=== PATIENT | male | born 1970 | race Hispanic/Latino ===

== ENCOUNTER → 2018-06-19 | Outpatient (CLI) | payer BC ==
[~2018-06-19] MED LIST: LEVO500T2 PO; METF-444 PO; TRAM50TA2 PO
[2018-06-19 14:07] VITALS: BP 166/101
== END | disposition home or self-care (01) ==
LOC: WHH 08:45
PROVIDERS: ATTEND Podiatrist Foot & Ankle Surgery
DX: T87.89 Other complications of amputation stump (principal); E11.621 Type 2 diabetes mellitus with foot ulcer; L97.511 Non-pressure chronic ulcer of other part of right foot limited to breakdown of skin; E11.42 Type 2 diabetes mellitus with diabetic polyneuropathy; E11.52 Type 2 diabetes mellitus with diabetic peripheral angiopathy with gangrene; I96 Gangrene, not elsewhere classified; E11.69 Type 2 diabetes mellitus with other specified complication; M86.8X7 Other osteomyelitis, ankle and foot; Y83.5 Amputation of limb(s) as the cause of abnormal reaction of the patient, or of later complication, without mention of misadventure at the time of the procedure
CPT/HCPCS: 11042; 87070; 99205; A6209; L3260

== ENCOUNTER → 2018-07-03 | Outpatient (CLI) | payer BC ==
[2018-07-03 12:50] VITALS: BP 138/88
== END | disposition home or self-care (01) ==
LOC: WHH 09:00
PROVIDERS: ATTEND Podiatrist Foot & Ankle Surgery
DX: T87.89 Other complications of amputation stump (principal); E11.621 Type 2 diabetes mellitus with foot ulcer; L97.511 Non-pressure chronic ulcer of other part of right foot limited to breakdown of skin; E11.51 Type 2 diabetes mellitus with diabetic peripheral angiopathy without gangrene; E11.42 Type 2 diabetes mellitus with diabetic polyneuropathy; E11.52 Type 2 diabetes mellitus with diabetic peripheral angiopathy with gangrene; I96 Gangrene, not elsewhere classified; E11.69 Type 2 diabetes mellitus with other specified complication; M86.8X7 Other osteomyelitis, ankle and foot; Y83.5 Amputation of limb(s) as the cause of abnormal reaction of the patient, or of later complication, without mention of misadventure at the time of the procedure
CPT/HCPCS: 11042; 97605

== ENCOUNTER → 2018-07-15 | Outpatient (CLI) | payer BC | END | disposition home or self-care (01) | LOC: SHCH 14:49 | PROVIDERS: ATTEND Internal Medicine Cardiovascular Disease | DX: I73.9 Peripheral vascular disease, unspecified (principal); E11.9 Type 2 diabetes mellitus without complications | CPT/HCPCS: 93306 ==

== ENCOUNTER → 2018-07-17 | Outpatient (CLI) | payer BC ==
[2018-07-17 14:00] VITALS: BP 130/78
== END | disposition home or self-care (01) ==
LOC: WHH 09:00
PROVIDERS: ATTEND Podiatrist Foot & Ankle Surgery
DX: T87.89 Other complications of amputation stump (principal); E11.621 Type 2 diabetes mellitus with foot ulcer; L97.511 Non-pressure chronic ulcer of other part of right foot limited to breakdown of skin; E11.42 Type 2 diabetes mellitus with diabetic polyneuropathy; E11.52 Type 2 diabetes mellitus with diabetic peripheral angiopathy with gangrene; I96 Gangrene, not elsewhere classified; E11.69 Type 2 diabetes mellitus with other specified complication; M86.8X7 Other osteomyelitis, ankle and foot; Y83.5 Amputation of limb(s) as the cause of abnormal reaction of the patient, or of later complication, without mention of misadventure at the time of the procedure
CPT/HCPCS: 11042; 87070; A6248

== ENCOUNTER → 2018-07-24 | Outpatient (CLI) | payer BC ==
[2018-07-24 13:41] VITALS: BP 173/98
== END | disposition home or self-care (01) ==
LOC: WHH 08:30
PROVIDERS: ATTEND Podiatrist Foot & Ankle Surgery
DX: T87.89 Other complications of amputation stump (principal); E11.621 Type 2 diabetes mellitus with foot ulcer; L97.511 Non-pressure chronic ulcer of other part of right foot limited to breakdown of skin; E11.42 Type 2 diabetes mellitus with diabetic polyneuropathy; E11.52 Type 2 diabetes mellitus with diabetic peripheral angiopathy with gangrene; I96 Gangrene, not elsewhere classified; E11.69 Type 2 diabetes mellitus with other specified complication; M86.8X7 Other osteomyelitis, ankle and foot; Y83.5 Amputation of limb(s) as the cause of abnormal reaction of the patient, or of later complication, without mention of misadventure at the time of the procedure
CPT/HCPCS: 11042

== ENCOUNTER → 2018-07-31 | Outpatient (CLI) | payer BC ==
[~2018-07-31] MED LIST changes: +HONEY 1 APPL/ML TUBE TP ONE
[2018-07-31 11:53] VITALS: BP 164/83
== END | disposition home or self-care (01) ==
LOC: WHH 08:45
PROVIDERS: ATTEND Podiatrist Foot & Ankle Surgery
DX: T87.89 Other complications of amputation stump (principal); E11.621 Type 2 diabetes mellitus with foot ulcer; L97.511 Non-pressure chronic ulcer of other part of right foot limited to breakdown of skin; E11.42 Type 2 diabetes mellitus with diabetic polyneuropathy; E11.52 Type 2 diabetes mellitus with diabetic peripheral angiopathy with gangrene; I96 Gangrene, not elsewhere classified; E11.69 Type 2 diabetes mellitus with other specified complication; M86.8X7 Other osteomyelitis, ankle and foot; Y83.5 Amputation of limb(s) as the cause of abnormal reaction of the patient, or of later complication, without mention of misadventure at the time of the procedure
CPT/HCPCS: 11042

== ENCOUNTER → 2018-08-07 | Outpatient (CLI) | payer BC ==
[~2018-08-07] MED LIST changes: -HONEY 1 APPL/ML TUBE TP ONE
[2018-08-07 14:18] VITALS: BP 142/87
== END | disposition home or self-care (01) ==
LOC: WHH 09:00
PROVIDERS: ATTEND Podiatrist Foot & Ankle Surgery
DX: T87.89 Other complications of amputation stump (principal); E11.621 Type 2 diabetes mellitus with foot ulcer; L97.515 Non-pressure chronic ulcer of other part of right foot with muscle involvement without evidence of necrosis; E11.42 Type 2 diabetes mellitus with diabetic polyneuropathy; E11.52 Type 2 diabetes mellitus with diabetic peripheral angiopathy with gangrene; I96 Gangrene, not elsewhere classified; E11.69 Type 2 diabetes mellitus with other specified complication; M86.8X7 Other osteomyelitis, ankle and foot; Y83.5 Amputation of limb(s) as the cause of abnormal reaction of the patient, or of later complication, without mention of misadventure at the time of the procedure
CPT/HCPCS: 15275; A6196; A6207; Q4133

== ENCOUNTER → 2018-08-14 | Outpatient (CLI) | payer BC ==
[2018-08-14 13:55] VITALS: BP 170/90
== END | disposition home or self-care (01) ==
LOC: WHH 08:30
PROVIDERS: ATTEND Podiatrist Foot & Ankle Surgery
DX: T87.89 Other complications of amputation stump (principal); E11.621 Type 2 diabetes mellitus with foot ulcer; L97.515 Non-pressure chronic ulcer of other part of right foot with muscle involvement without evidence of necrosis; E11.42 Type 2 diabetes mellitus with diabetic polyneuropathy; E11.52 Type 2 diabetes mellitus with diabetic peripheral angiopathy with gangrene; I96 Gangrene, not elsewhere classified; E11.69 Type 2 diabetes mellitus with other specified complication; M86.8X7 Other osteomyelitis, ankle and foot; Y83.5 Amputation of limb(s) as the cause of abnormal reaction of the patient, or of later complication, without mention of misadventure at the time of the procedure
CPT/HCPCS: 15275; A6197; A6207; Q4133

== ENCOUNTER → 2018-08-15 | Outpatient (CLI) | payer BC ==
[2018-08-15] MEDS: REGADENOSON 0.4 MG/5 ML PF SYG IVP SCH (09:54)
== END | disposition home or self-care (01) ==
LOC: SHCH 08:05
PROVIDERS: ATTEND Internal Medicine Cardiovascular Disease
DX: I20.9 Angina pectoris, unspecified (principal)
CPT/HCPCS: 78452; 93017; 96374; A9500 ×2; J2785

== ENCOUNTER → 2018-08-21 | Outpatient (CLI) | payer BC ==
[2018-08-21 12:00] VITALS: BP 128/82
== END | disposition home or self-care (01) ==
LOC: WHH 08:45
PROVIDERS: ATTEND Podiatrist Foot & Ankle Surgery
DX: T87.9 Unspecified complications of amputation stump (principal); E11.621 Type 2 diabetes mellitus with foot ulcer; L97.511 Non-pressure chronic ulcer of other part of right foot limited to breakdown of skin; E11.42 Type 2 diabetes mellitus with diabetic polyneuropathy; E11.52 Type 2 diabetes mellitus with diabetic peripheral angiopathy with gangrene; I96 Gangrene, not elsewhere classified; E11.69 Type 2 diabetes mellitus with other specified complication; M86.8X7 Other osteomyelitis, ankle and foot; Y83.5 Amputation of limb(s) as the cause of abnormal reaction of the patient, or of later complication, without mention of misadventure at the time of the procedure
CPT/HCPCS: 15275; A6196; A6207; Q4133

== ENCOUNTER → 2018-08-28 | Outpatient (CLI) | payer BC ==
[2018-08-28 12:44] VITALS: BP 166/76
== END | disposition home or self-care (01) ==
LOC: WHH 08:30
PROVIDERS: ATTEND Podiatrist Foot & Ankle Surgery
DX: T87.89 Other complications of amputation stump (principal); E11.621 Type 2 diabetes mellitus with foot ulcer; L97.511 Non-pressure chronic ulcer of other part of right foot limited to breakdown of skin; E11.42 Type 2 diabetes mellitus with diabetic polyneuropathy; E11.52 Type 2 diabetes mellitus with diabetic peripheral angiopathy with gangrene; I96 Gangrene, not elsewhere classified; E11.69 Type 2 diabetes mellitus with other specified complication; M86.8X7 Other osteomyelitis, ankle and foot; Y83.5 Amputation of limb(s) as the cause of abnormal reaction of the patient, or of later complication, without mention of misadventure at the time of the procedure
CPT/HCPCS: 15275; A6196; A6207; Q4133

== ENCOUNTER → 2018-09-04 | Outpatient (CLI) | payer BC ==
[2018-09-04 13:06] VITALS: BP 183/105
== END | disposition home or self-care (01) ==
LOC: WHH 08:30
PROVIDERS: ATTEND Podiatrist Foot & Ankle Surgery
DX: T87.89 Other complications of amputation stump (principal); E11.621 Type 2 diabetes mellitus with foot ulcer; L97.511 Non-pressure chronic ulcer of other part of right foot limited to breakdown of skin; E11.42 Type 2 diabetes mellitus with diabetic polyneuropathy; E11.52 Type 2 diabetes mellitus with diabetic peripheral angiopathy with gangrene; I96 Gangrene, not elsewhere classified; E11.69 Type 2 diabetes mellitus with other specified complication; M86.8X7 Other osteomyelitis, ankle and foot; Y83.5 Amputation of limb(s) as the cause of abnormal reaction of the patient, or of later complication, without mention of misadventure at the time of the procedure
CPT/HCPCS: 15275; A6196; A6207; Q4133

== ENCOUNTER 2018-09-11 08:30 | Outpatient (CLI) | payer BC ==
[2018-09-11 09:28] VITALS: BP 122/84
== END 2018-09-11 09:42 | disposition home or self-care (01) ==
LOC: WHH 08:30
PROVIDERS: ATTEND Podiatrist Foot & Ankle Surgery
DX: T87.89 Other complications of amputation stump (principal); E11.621 Type 2 diabetes mellitus with foot ulcer; L97.528 Non-pressure chronic ulcer of other part of left foot with other specified severity; E11.52 Type 2 diabetes mellitus with diabetic peripheral angiopathy with gangrene; I96 Gangrene, not elsewhere classified; E11.42 Type 2 diabetes mellitus with diabetic polyneuropathy; E11.69 Type 2 diabetes mellitus with other specified complication; M86.8X7 Other osteomyelitis, ankle and foot; Y83.5 Amputation of limb(s) as the cause of abnormal reaction of the patient, or of later complication, without mention of misadventure at the time of the procedure
CPT/HCPCS: 99214

== ENCOUNTER 2019-07-12 20:27 | Emergency (ER) | payer BC ==
[2019-07-12] MEDS ORDERED: SODIUM CHLORIDE 0.9% 1000ML 2,000 ML IV ONE (21:08)
[2019-07-12 21:12] LABS: BASOPHILS % (AUTO) 0.7 % (0.0-5.0); HEMATOCRIT 34.3 % (42-54); LYMPHOCYTES % (AUTO) 24.5 % (21.0-51.0); MEAN CORPUSCULAR HEMOGLOBIN 29.1 pg (27.0-33.0); MEAN CORPUSCULAR HGB CONC 35.1 g/dL (32.0-36.0); MEAN CORPUSCULAR VOLUME 82.9 fL (79-99); MONOCYTES % (AUTO) 9.2 % (3.0-13.0); NEUTROPHILS % (AUTO) 62.6 % (40.0-77.0); NUCLEATED RED BLOOD CELLS 0.2 % (0.0-0.19); PLATELET COUNT (AUTO) 157 K/uL (130-400); RED BLOOD CELL COUNT(AUTO) 4.14 MIL/uL (4.50-6.20); RED CELL DISTRIBUTION WIDTH 13.4 % (11.0-15.5); WHITE BLOOD COUNT (AUTO) 8.5 K/uL (4.8-10.8)
[2019-07-12 21:18] LABS: INR 0.86 (0.85-1.15); PARTIAL THROMBOPLASTIN TIME 22.9 SEC (26.3-35.5); PROTHROMBIN TIME 9.1 SEC (9.6-11.6)
[2019-07-12 21:23] LABS: CREATININE 1.8 mg/dL (0.5-1.5); POTASSIUM 4.5 mmol/L (3.5-5.1)
[2019-07-12 21:29] LABS: APPEARANCE,URINE Clear (CLEAR); BILIRUBIN,URINE Negative (NEGATIVE); COLOR,URINE Yellow (YELLOW); GLUCOSE, URINE (UA) >=1000 mg/dL (NEGATIVE); KETONES,URINE Trace mg/dL (NEGATIVE); LEUKOCYTE ESTERASE ,URINE Negative (NEGATIVE); NITRATE,URINE Negative (NEGATIVE); OCCULT BLOOD,URINE Small (NEGATIVE); PROTEIN,URINE 300 mg/dL (NEGATIVE)
[2019-07-12 21:29] LABS: ALBUMIN 3.2 g/dL (3.5-5.0); BILIRUBIN,TOTAL 0.5 mg/dL (0.2-1.0); TOTAL PROTEIN, SERUM 7.2 g/dL (6.0-8.3)
[2019-07-12 21:49] LABS: BACTERIA,URINE Rare /HPF (None Seen); COARSE GRANULAR CASTS,URINE 0-2 /LPF (None Seen); RBC,URINE None Seen /HPF (0-1); SQUAMOUS EPITHELIAL CELL,UR None Seen /HPF (0-2)
[2019-07-12] MEDS ORDERED: CLINDAMYCIN 600 MG/D5% WATER 50 ML IV ONE (21:52)
[2019-07-12] MEDS ORDERED: INSULIN HUMULIN R 100 UNIT/ML 3ML ONE ×2 (22:14→23:50)
[2019-07-12 22:42] LABS: ABG OXYGEN SATURATION 99.3 % (95.0-99.0); BASE EXCESS,VENOUS BLOOD GAS -8.8 (-2.0-3.0); HCO3,VENOUS BLOOD GAS 15.8 (21.0-28.0); PCO2,VENOUS BLOOD GAS 31 (35-48); PH,VENOUS BLOOD GAS 7.327 (7.350-7.450)
[2019-07-12] MEDS ORDERED: SODIUM CHLORIDE 0.9% 1000ML 1,000 ML IV ONE ×2 (22:51→23:50)
[2019-07-12 23:43] LABS: CREATININE 1.4 mg/dL (0.5-1.5); POTASSIUM 3.8 mmol/L (3.5-5.1)
[2019-07-13 00:08] LABS: BASE EXCESS,VENOUS BLOOD GAS -1.9 (-2.0-3.0); HCO3,VENOUS BLOOD GAS 22.6 (21.0-28.0); PCO2,VENOUS BLOOD GAS 38 (35-48); PH,VENOUS BLOOD GAS 7.392 (7.350-7.450)
[2019-07-13] MEDS ORDERED: SULFAMETHOX-TMP DS 800/160 TAB ONE (00:59)
== END 2019-07-13 01:14 | disposition home or self-care (01) ==
LOC: EDH 20:27
DX: T67.5XXA Heat exhaustion, unspecified, initial encounter (principal); E11.10 Type 2 diabetes mellitus with ketoacidosis without coma; E86.9 Volume depletion, unspecified; L03.032 Cellulitis of left toe; E11.65 Type 2 diabetes mellitus with hyperglycemia; I10 Essential (primary) hypertension; Z79.899 Other long term (current) drug therapy; Z79.84 Long term (current) use of oral hypoglycemic drugs; X58.XXXA Exposure to other specified factors, initial encounter; Y93.89 Activity, other specified; Y92.89 Other specified places as the place of occurrence of the external cause; Y99.8 Other external cause status
CPT/HCPCS: 36415; 36600 ×2; 73660; 80053; 81001; 82010 ×2; 82550; 82803 ×2; 82948; 83605; 84484; 85025; 85610; 85730; 96361; 96365; 96375; 96376; 99285; J1815 ×2; J3490; J7030 ×3; 80048

== ENCOUNTER → 2020-02-02 | Outpatient (CLI) | payer BC ==
[~2020-02-02] MED LIST changes: +CARV6.25 PO; -LEVO500T2 PO; +METF-526 PO; -TRAM50TA2 PO
== END | disposition home or self-care (01) ==
LOC: SHCH 10:04
PROVIDERS: ATTEND Internal Medicine Cardiovascular Disease
DX: I87.2 Venous insufficiency (chronic) (peripheral) (principal)
CPT/HCPCS: 93970

== ENCOUNTER → 2020-02-12 | Outpatient (CLI) | payer BC ==
[~2020-02-12] MED LIST changes: +REGADENOSON 0.4 MG/5 ML PF SYG IVP SCH
== END | disposition home or self-care (01) ==
LOC: SHCH 07:50
PROVIDERS: ATTEND Internal Medicine Cardiovascular Disease
DX: I25.10 Atherosclerotic heart disease of native coronary artery without angina pectoris (principal)
CPT/HCPCS: 78452; 93017; 96374; A9500 ×2; J2785

== ENCOUNTER 2020-02-24 05:27 | Day surgery (SDC) | payer BC ==
[2020-02-24] VITALS (14 sets, daily range): BP systolic 131–162; BP diastolic 35–78
[~2020-02-24] VITALS: Ht 185.4 cm; Wt 85.3 kg
[~2020-02-24 05:27] MED LIST changes: +ATOR20TA65 PO; -CARV6.25 PO; +CLOP75TA32 PO; +FERR-82 PO; +FURO20TA4 PO; -METF-526 PO; +METO25TA6 PO; -REGADENOSON 0.4 MG/5 ML PF SYG IVP SCH
[2020-02-24 06:44] LABS: BASOPHILS % (AUTO) 0.3 % (0.0-5.0); EOSINOPHILS % (AUTO) 1.5 % (0.0-8.0); HEMATOCRIT 27.6 % (42-54); LYMPHOCYTES % (AUTO) 16.2 % (21.0-51.0); MEAN CORPUSCULAR HEMOGLOBIN 27.1 pg (27.0-33.0); MEAN CORPUSCULAR HGB CONC 31.5 g/dL (32.0-36.0); MONOCYTES % (AUTO) 7.4 % (3.0-13.0); NEUTROPHILS % (AUTO) 74.3 % (40.0-77.0); PLATELET COUNT (AUTO) 169 K/uL (130-400); RED BLOOD CELL COUNT(AUTO) 3.21 MIL/uL (4.50-6.20); RED CELL DISTRIBUTION WIDTH 14.9 % (11.0-15.5); WHITE BLOOD COUNT (AUTO) 7.4 K/uL (4.8-10.8)
[2020-02-24] MEDS ORDERED: SODIUM CHLORIDE 0.9% 1000ML 1,000 ML IV ONE (06:49)
[2020-02-24 06:51] LABS: CREATININE 2.2 mg/dL (0.5-1.5); POTASSIUM 5.4 mmol/L (3.5-5.1)
[2020-02-24 06:55] LABS: APPEARANCE,URINE Clear (CLEAR); BILIRUBIN,URINE Negative (NEGATIVE); COLOR,URINE Yellow (YELLOW); GLUCOSE, URINE (UA) TRACE mg/dL (NEGATIVE); KETONES,URINE Negative (NEGATIVE); LEUKOCYTE ESTERASE ,URINE Negative (NEGATIVE); NITRATE,URINE Negative (NEGATIVE); OCCULT BLOOD,URINE Small (NEGATIVE); PROTEIN,URINE >=1000 mg/dL (NEGATIVE)
[2020-02-24 06:57] LABS: BACTERIA,URINE Rare /HPF (None Seen); RBC,URINE 0-1 /HPF (0-1); SQUAMOUS EPITHELIAL CELL,UR Rare /HPF (0-2); WBC,URINE 0-1 /HPF (0-1)
[2020-02-24 07:02] LABS: INR 1.01 (0.85-1.15); PARTIAL THROMBOPLASTIN TIME 26.5 SEC (26.3-35.5); PROTHROMBIN TIME 10.9 SEC (9.6-11.6)
[2020-02-24] MEDS ORDERED: LABETALOL 20 MG/4 ML DISP.SYRIN IV ONE (08:03)
[2020-02-24] MEDS ORDERED: NITROGLYCERIN 2 MG/VIAL VIAL IV ONE (08:13)
[2020-02-24] MEDS ORDERED: LIDOCAINE HCL 2% 20ML ONE (08:13)
[2020-02-24] MEDS ORDERED: IOHEXOL 350 MG/ML 100ML INFUS..BTL IV ONE (08:13)
[2020-02-24] MEDS ORDERED: SODIUM CHLORIDE 0.9% 1000ML 1,000 ML IV SCH (08:17)
[2020-02-24] MEDS ORDERED: DEXTROSE 50%-WATER 50 ML DISP.SYRIN IV PRN (08:30)
[2020-02-24] MEDS ORDERED: GLUCAGON 1MG KIT 1 MG ML IM PRN (08:30)
[2020-02-24] MEDS ORDERED: NITROGLYCERIN 0.4 MG SL TAB SL PRN (08:30)
[2020-02-24] MEDS ORDERED: HYDRALAZINE HCL 20 MG/ML VIAL IV PRN (08:30)
--- NOTE | 2020-02-24 09:10 | NUR ---
PT TO IR FOR THORACENTESIS WITH LUIZ
--- NOTE | 2020-02-24 09:25 | NUR ---
PROCEDURE PATIENT SCHEDULED FOR RT SIDED THORACENTESIS POST HEART CATHETERIZATION. PATIENT TRANSPORTED TO RADIOLOGY AND TURNED WITH RT SIDE UP. RT LEG KEPT STRAIGHT DURING PROCEDURE. IMAGES TAKEN AND REVIEWED BY DR Shawn MODI. MINIMAL FLUID SEEN AND PROCEDURE CANCELED. REORT GIVEN TO Shawn PACE RN AND PATIENT TRANSPORTED TO DAY PATIENT RM7 VIA BED. DRESSING TO RT GRION DRY AND INTACT WITH NO BLEEDING OR SWELLING NOTED.
--- NOTE | 2020-02-24 09:30 | NUR ---
PT BACK FROM IR NO THORACENTESIS DONE.
[2020-02-24] MEDS ORDERED: INSULIN HUMULIN R 100 UNIT/ML 3ML SQ SCH (11:30)
--- NOTE | 2020-02-24 13:45 | NUR ---
report received report from sofi painter rn. pt laying in bed in no distress. rt groin free from hematoma or bleeding. pt has palpable pulse. will continue to monitor pt
--- NOTE | 2020-02-24 16:00 | NUR ---
DISCHARGE PT IN NO DISTRESS. NO S/S OF BLEEDING OR HEMATOMA TO RT GROIN. PT TAKEN OUT VIA W/C. PT TOOK COPIES OF DISCHARGE INSTRUCTIONS
== END 2020-02-24 16:00 | disposition home or self-care (01) ==
LOC: DAH 05:27
PROVIDERS: ATTEND Internal Medicine Cardiovascular Disease
DX: I25.119 Atherosclerotic heart disease of native coronary artery with unspecified angina pectoris (principal); I21.4 Non-ST elevation (NSTEMI) myocardial infarction; I50.33 Acute on chronic diastolic (congestive) heart failure; E11.22 Type 2 diabetes mellitus with diabetic chronic kidney disease; I13.0 Hypertensive heart and chronic kidney disease with heart failure and stage 1 through stage 4 chronic kidney disease, or unspecified chronic kidney disease; N18.4 Chronic kidney disease, stage 4 (severe); Z79.84 Long term (current) use of oral hypoglycemic drugs; Z79.01 Long term (current) use of anticoagulants; Z79.899 Other long term (current) drug therapy
CPT/HCPCS: 36415; 71045; 76604; 80048; 81001; 82948 ×2; 85025; 85610; 85730; 93005; 93458; A4215; A4216; A4221; A4222; A4223 ×3; A4606; A4663; C1894 ×2; J1644; J3490 ×2; J7030; Q9965; Q9967; 99156; 99157

== ENCOUNTER 2020-03-17 17:46 | Inpatient (IN) | payer BC ==
[~2020-03-17] VITALS: Ht 165.1 cm; Wt 72.1 kg
[2020-03-17 18:33] LABS: BASOPHILS % (AUTO) 0.4 % (0.0-5.0); EOSINOPHILS % (AUTO) 1.1 % (0.0-8.0); HEMATOCRIT 26.9 % (42-54); LYMPHOCYTES % (AUTO) 7.6 % (21.0-51.0); MEAN CORPUSCULAR HGB CONC 31.6 g/dL (32.0-36.0); MEAN CORPUSCULAR VOLUME 85.4 fL (79-99); MONOCYTES % (AUTO) 7.4 % (3.0-13.0); NEUTROPHILS % (AUTO) 83.1 % (40.0-77.0); PLATELET COUNT (AUTO) 157 K/uL (130-400); RED BLOOD CELL COUNT(AUTO) 3.15 MIL/uL (4.50-6.20); RED CELL DISTRIBUTION WIDTH 14.6 % (11.0-15.5); WHITE BLOOD COUNT (AUTO) 10.1 K/uL (4.8-10.8)
[2020-03-17 18:48] LABS: INR 0.97 (0.85-1.15); PARTIAL THROMBOPLASTIN TIME 28.4 SEC (26.3-35.5); PROTHROMBIN TIME 10.5 SEC (9.6-11.6)
[2020-03-17 19:04] LABS: CREATININE 2.4 mg/dL (0.5-1.5); POTASSIUM 5.3 mmol/L (3.5-5.1)
[2020-03-17 19:19] LABS: ALBUMIN 2.2 g/dL (3.5-5.0); BILIRUBIN,TOTAL 0.3 mg/dL (0.2-1.0); TOTAL PROTEIN, SERUM 6.2 g/dL (6.0-8.3); TROPONIN I 0.04 ng/mL (0.00-0.06)
[2020-03-17 20:16] LABS: APPEARANCE,URINE Clear (CLEAR); BILIRUBIN,URINE Negative (NEGATIVE); COLOR,URINE Yellow (YELLOW); GLUCOSE, URINE (UA) TRACE mg/dL (NEGATIVE); KETONES,URINE Negative (NEGATIVE); LEUKOCYTE ESTERASE ,URINE Negative (NEGATIVE); NITRATE,URINE Negative (NEGATIVE); OCCULT BLOOD,URINE Small (NEGATIVE); PROTEIN,URINE 300 mg/dL (NEGATIVE)
[2020-03-17 20:53] LABS: BACTERIA,URINE Rare /HPF (None Seen); RBC,URINE 0-1 /HPF (0-1); WBC,URINE None Seen /HPF (0-1)
[2020-03-17 20:54] LABS: SQUAMOUS EPITHELIAL CELL,UR None Seen /HPF (0-2)
[2020-03-17] MEDS ORDERED: MORPHINE SULFATE 2 MG/ML 1ML SYG IV PRN (23:30)
[2020-03-17] MEDS ORDERED: ACETAMINOPHEN 325 MG TAB PO PRN ×2 (23:30)
[2020-03-17] MEDS: SODIUM POLYSTYRENE SULFONATE 15 GM/60 ML ML PO SCH (23:30)
[2020-03-17] MEDS ORDERED: HYDRALAZINE HCL 20 MG/ML VIAL IV PRN (23:30)
[2020-03-17] MEDS ORDERED: LACTULOSE 20 GM/30 ML UDCUP PO PRN (23:30)
[2020-03-17] MEDS ORDERED: MORPHINE SULFATE 2 MG/ML 1ML SYG ONE (23:34)
[2020-03-17] MEDS ORDERED: ZOSYN 3.375GM+NS 50ML 50 ML IV ONE (23:34)
[2020-03-17] MEDS ORDERED: PHARMACY COMMUNICATION MISC SCH (23:45)
[2020-03-18] MEDS ORDERED: SODIUM POLYSTYRENE SULFONATE 15 GM/60 ML ML ONE (00:14)
[2020-03-18 04:54] LABS: BASOPHILS % (AUTO) 0.4 % (0.0-5.0); EOSINOPHILS % (AUTO) 1.2 % (0.0-8.0); HEMATOCRIT 26.5 % (42-54); LYMPHOCYTES % (AUTO) 11.4 % (21.0-51.0); MEAN CORPUSCULAR HEMOGLOBIN 27.1 pg (27.0-33.0); MEAN CORPUSCULAR HGB CONC 31.7 g/dL (32.0-36.0); MEAN CORPUSCULAR VOLUME 85.5 fL (79-99); MONOCYTES % (AUTO) 9.2 % (3.0-13.0); NEUTROPHILS % (AUTO) 77.4 % (40.0-77.0); PLATELET COUNT (AUTO) 157 K/uL (130-400); RED CELL DISTRIBUTION WIDTH 14.4 % (11.0-15.5); WHITE BLOOD COUNT (AUTO) 8.4 K/uL (4.8-10.8)
[2020-03-18] MEDS ORDERED: ZOSYN 3.375GM+NS 50ML 50 ML IV SCH (05:00)
[2020-03-18 05:14] LABS: CREATININE 2.4 mg/dL (0.5-1.5); POTASSIUM 5.3 mmol/L (3.5-5.1)
[2020-03-18] MEDS: INSULIN HUMULIN R 100 UNIT/ML 3ML SQ SCH ×4 (07:30→20:39)
--- NOTE | 2020-03-18 08:49 | NUR ---
DR. ARRIOLA IS IN TO SEE PATIENT.
[2020-03-18 09:01] VITALS: BP 167/95
[2020-03-18] MEDS ORDERED: METOPROLOL TARTRATE 50 MG TAB PO SCH (09:15)
[2020-03-18] MEDS: ZOSYN 3.375GM+NS 50ML 50 ML IV SCH ×2 (09:15→20:30)
[2020-03-18] MEDS: ENOXAPARIN SODIUM 40 MG/0.4 ML SYRINGE SQ SCH (09:27)
[2020-03-18] MEDS: FAMOTIDINE 20MG TAB 20 MG TAB PO SCH ×2 (09:27→20:29)
[2020-03-18] MEDS: FUROSEMIDE 10 MG/ML 2ML VIAL IV SCH ×2 (09:27→20:29)
[2020-03-18 11:42] VITALS: BP 140/70
--- NOTE | 2020-03-18 13:43 | NUR ---
CM NOTE/IA MEET WITH PATIENT IN ROOM. PER PATIENT LIVES WITH SPOUSE AND THEIR 2 MINOR CHILDREN, NO DME IN USE, SEMI INDEPENDENT WITH ADLS WITH ASSISTANCE FROM AND KIDS, NO PROVIDER OR OUTPATIENT PT, HAS [facility] FOR WOUND CARE TO BLE 3 X PER WEEK ON MWF. PER PATIENT FEELS SAFE TO RETURN HOME ONCE DISCHARGED. Addendum: 03/18/20 at 1345 by DIANE PACE RN CM Amended: Links added.
--- NOTE | 2020-03-18 16:31 | NUR ---
[facility] consult Patient assessed as ordered. Wound care recommendations submitted per protocol. Addendum: 03/18/20 at 1635 by JAME TRINH RN/CLAY Amended: Links added.
[2020-03-18 17:43] VITALS: BP 135/78
[2020-03-18 20:00] VITALS: BP 136/71
[2020-03-18] MEDS: METOPROLOL TARTRATE 50 MG TAB PO SCH (20:29)
[2020-03-18] MEDS: SODIUM POLYSTYRENE SULFONATE 15 GM/60 ML ML PO SCH (23:10)
[2020-03-19] VITALS: BP 144/76
--- NOTE | 2020-03-19 | NUR ---
PT ABLE TO TAKE MEDICATIONS WELL. STATES HE IS AMBULATING WITH MINIMAL ASSISTANCE. CONTINUES ON IV ABTS. PT PENDING IS. PT WILL HAVE WOUND CARE CONSULT.
[2020-03-19 04:00] VITALS: BP 155/82
[2020-03-19 04:33] LABS: HEMATOCRIT 25.8 % (42-54); MEAN CORPUSCULAR HEMOGLOBIN 26.4 pg (27.0-33.0); MEAN CORPUSCULAR VOLUME 85.1 fL (79-99); PLATELET COUNT (AUTO) 170 K/uL (130-400); RED BLOOD CELL COUNT(AUTO) 3.03 MIL/uL (4.50-6.20); RED CELL DISTRIBUTION WIDTH 14.4 % (11.0-15.5); WHITE BLOOD COUNT (AUTO) 7.2 K/uL (4.8-10.8)
[2020-03-19 04:40] LABS: CREATININE 2.6 mg/dL (0.5-1.5); PHOSPHORUS 5.8 mg/dL (2.5-4.9); POTASSIUM 4.9 mmol/L (3.5-5.1)
[2020-03-19 04:55] LABS: BASOPHILS % (MANUAL) 1 % (0-2); EOSINOPHILS % (MANUAL) 2 % (1-6); LYMPHOCYTES % (MANUAL) 17 % (22-44); MONOCYTES % (MANUAL) 6 % (2-9); SEGMENTED NEUTROPHILS % 74 % (40-70)
[2020-03-19 04:56] LABS: MAN.DIFF COMMENT-IMPRESSION MANUAL DIFFERENTIAL
[2020-03-19 04:59] LABS: PLATELET MORPHOLOGY COMMENT ADEQUATE
[2020-03-19 05:11] LABS: % IRON SATURATION 15.6 % (30-44)
[2020-03-19 07:00] VITALS: BP 158/89
[2020-03-19] MEDS: INSULIN HUMULIN R 100 UNIT/ML 3ML SQ SCH ×4 (07:17→20:39)
--- NOTE | 2020-03-19 08:00 | NUR ---
DR. ARRIOLA IS MAKING HIS ROUNDS. PER MD, PATIENT'S KIDNEY FUNCTIONS AT THIS TIME ARE AT HIS BASELINE. NEW MEDS ORDERED.
[2020-03-19] MEDS ORDERED: EPOETIN ALFA 10,000 UNIT/ML VIAL SQ SCH (08:30)
[2020-03-19] MEDS: ZOSYN 3.375GM+NS 50ML 50 ML IV SCH ×2 (08:43→20:36)
[2020-03-19] MEDS: METOPROLOL TARTRATE 50 MG TAB PO SCH ×2 (08:43→20:37)
[2020-03-19] MEDS: FAMOTIDINE 20MG TAB 20 MG TAB PO SCH ×2 (08:43→20:36)
[2020-03-19] MEDS: FUROSEMIDE 10 MG/ML 2ML VIAL IV SCH ×2 (08:44→20:46)
[2020-03-19] MEDS: ENOXAPARIN SODIUM 40 MG/0.4 ML SYRINGE SQ SCH (08:44)
[2020-03-19] MEDS ORDERED: COMPOUND IV MISC 1 EACH IVSOLN MISC PRN (08:45)
[2020-03-19] MEDS: HONEY 1 APPL/ML TUBE TP SCH ×2 (09:00→10:07)
[2020-03-19] MEDS: IRON SUCROSE COMPLEX 100 MG in SODIUM CHLORIDE 0.9% 50 ML IV SCH (09:15)
[2020-03-19 11:00] VITALS: BP 146/68
--- NOTE | 2020-03-19 13:00 | NUR ---
DR. VARELA IS MAKING HIS ROUNDS. NO PLANS FOR SURGERY OF TODAY.
[2020-03-19 16:12] VITALS: BP 153/71
--- NOTE | 2020-03-19 17:00 | NUR ---
WOUND CARE DONE WITH MEDIHONEY TO BILATERAL LOWER EXTREMITY WOUNDS RECOMMENDED BY WOUND CARE TEAM. PATIENT TOLERATED PROCEDURE.
--- NOTE | 2020-03-19 17:30 | NUR ---
DR. WAN IS IN TO SEE PATIENT.
[2020-03-19 20:00] VITALS: BP 161/76
[2020-03-19] MEDS: SODIUM POLYSTYRENE SULFONATE 15 GM/60 ML ML PO SCH (20:47)
[2020-03-20] VITALS (7 sets, daily range): BP systolic 140–171; BP diastolic 73–89
[2020-03-20 04:26] LABS: BASOPHILS % (AUTO) 0.5 % (0.0-5.0); HEMATOCRIT 25.7 % (42-54); LYMPHOCYTES % (AUTO) 15.2 % (21.0-51.0); MEAN CORPUSCULAR HGB CONC 31.5 g/dL (32.0-36.0); MEAN CORPUSCULAR VOLUME 85.7 fL (79-99); MONOCYTES % (AUTO) 11.1 % (3.0-13.0); NEUTROPHILS % (AUTO) 70.9 % (40.0-77.0); PLATELET COUNT (AUTO) 179 K/uL (130-400); WHITE BLOOD COUNT (AUTO) 6.6 K/uL (4.8-10.8)
[2020-03-20 04:33] LABS: HEMOGLOBIN A1C 6.9 % (4.0-6.0)
[2020-03-20 04:38] LABS: INR 0.99 (0.85-1.15); PARTIAL THROMBOPLASTIN TIME 29.1 SEC (26.3-35.5); PROTHROMBIN TIME 10.7 SEC (9.6-11.6)
[2020-03-20 04:48] LABS: B-TYPE NATRIURETIC PEPTIDE 1880 pg/mL (0-100)
[2020-03-20 05:14] LABS: ALBUMIN 1.8 g/dL (3.5-5.0); ASPARTATE AMINOTRANSFERASE 11 U/L (10-37); BILIRUBIN,TOTAL 0.2 mg/dL (0.2-1.0); CARBON DIOXIDE 22 mmol/L (21-32); CHLORIDE 105 mmol/L (101-111); CHOLESTEROL 104 mg/dL (<200); CREATININE 2.9 mg/dL (0.5-1.5); GLOMERULAR FILTR. RATE CALC 25 mL/min (>60); GLUCOSE,RANDOM 151 mg/dL (70-105); HDL CHOLESTEROL 43 mg/dL (29-71); LDL DIRECT 49 mg/dL (0-99); POTASSIUM 5.1 mmol/L (3.5-5.1); SODIUM SERUM 137 mmol/L (136-145); TRIGLYCERIDES 70 mg/dL (30-200); UREA NITROGEN, BLOOD 58 mg/dL (7-18)
[2020-03-20 05:15] LABS: ALANINE AMINOTRANSFERASE < 6 U/L (12-78)
[2020-03-20] MEDS: INSULIN HUMULIN R 100 UNIT/ML 3ML SQ SCH ×4 (05:28→21:36)
--- NOTE | 2020-03-20 07:55 | NUR ---
DR. ALANIS MADE AWARE OF CULTURE RESULTS TO LOWER EXTREMITY POSITIVE FOR ACINETOBACTOR, MRSA, ARGUETA RESISTANT. PER DR. ALANIS CANCEL CABG ORDER. AT THIS TIME NO RESCHEDULE DATE GIVEN
[2020-03-20] MEDS: HONEY 1 APPL/ML TUBE TP SCH (09:00)
[2020-03-20] MEDS: METOPROLOL TARTRATE 50 MG TAB PO SCH ×2 (10:38→20:16)
[2020-03-20] MEDS: FUROSEMIDE 10 MG/ML 2ML VIAL IV SCH ×2 (10:38→20:16)
[2020-03-20] MEDS: FAMOTIDINE 20MG TAB 20 MG TAB PO SCH ×2 (10:38→20:16)
[2020-03-20] MEDS: ZOSYN 3.375GM+NS 50ML 50 ML IV SCH (10:38)
[2020-03-20] MEDS: IRON SUCROSE COMPLEX 100 MG in SODIUM CHLORIDE 0.9% 50 ML IV SCH (10:39)
[2020-03-20] MEDS: ENOXAPARIN SODIUM 40 MG/0.4 ML SYRINGE SQ SCH (10:39)
[2020-03-20] MEDS ORDERED: CEFAZOLIN SODIUM 1 GM VIAL IVP PRN (11:00)
[2020-03-20] MEDS ORDERED: PHARMACY COMMUNICATION MISC SCH ×2 (12:30→15:00)
[2020-03-20] MEDS ORDERED: COMPOUND IV REFRIGERATED 1 EACH IVSOLN MISC PRN (16:30)
[2020-03-20] MEDS ORDERED: TIGECYCLINE 100 MG in SODIUM CHLORIDE 0.9% 100 ML IV SCH (17:00)
[2020-03-20] MEDS: SODIUM POLYSTYRENE SULFONATE 15 GM/60 ML ML PO SCH (19:45)
[2020-03-20] MEDS: ONDANSETRON HCL 4 MG/2 ML VIAL IV PRN (20:16)
[2020-03-21 04:00] VITALS: BP 154/70
[2020-03-21] MEDS: TIGECYCLINE 50 MG in SODIUM CHLORIDE 0.9% 100 ML IV SCH ×2 (05:29→17:28)
[2020-03-21] MEDS: ONDANSETRON HCL 4 MG/2 ML VIAL IV PRN ×2 (05:49→17:28)
[2020-03-21] MEDS: INSULIN HUMULIN R 100 UNIT/ML 3ML SQ SCH ×4 (06:22→21:00)
[2020-03-21 07:30] VITALS: BP 164/84
[2020-03-21] MEDS: FUROSEMIDE 10 MG/ML 2ML VIAL IV SCH ×2 (08:54→19:49)
[2020-03-21] MEDS: METOPROLOL TARTRATE 50 MG TAB PO SCH ×2 (08:54→19:49)
[2020-03-21] MEDS: IRON SUCROSE COMPLEX 100 MG in SODIUM CHLORIDE 0.9% 50 ML IV SCH (08:54)
[2020-03-21] MEDS: FAMOTIDINE 20MG TAB 20 MG TAB PO SCH ×2 (08:55→19:49)
[2020-03-21] MEDS: ENOXAPARIN SODIUM 40 MG/0.4 ML SYRINGE SQ SCH (08:55)
[2020-03-21 11:30] VITALS: BP 156/80
[2020-03-21 15:30] VITALS: BP 153/79
[2020-03-21] MEDS: HONEY 1 APPL/ML TUBE TP SCH (16:55)
[2020-03-21 20:23] VITALS: BP 170/81
[2020-03-21 23:27] VITALS: BP 156/72
[2020-03-22 03:33] VITALS: BP 151/78
[2020-03-22] MEDS: TIGECYCLINE 50 MG in SODIUM CHLORIDE 0.9% 100 ML IV SCH ×2 (05:05→16:46)
[2020-03-22] MEDS: INSULIN HUMULIN R 100 UNIT/ML 3ML SQ SCH ×4 (05:38→21:00)
[2020-03-22 06:08] LABS: BASOPHILS % (AUTO) 0.6 % (0.0-5.0); HEMATOCRIT 26.8 % (42-54); LYMPHOCYTES % (AUTO) 17.4 % (21.0-51.0); MEAN CORPUSCULAR HEMOGLOBIN 27.1 pg (27.0-33.0); MEAN CORPUSCULAR HGB CONC 32.5 g/dL (32.0-36.0); MEAN CORPUSCULAR VOLUME 83.5 fL (79-99); NEUTROPHILS % (AUTO) 68.5 % (40.0-77.0); PLATELET COUNT (AUTO) 255 K/uL (130-400); RED BLOOD CELL COUNT(AUTO) 3.21 MIL/uL (4.50-6.20); RED CELL DISTRIBUTION WIDTH 14.1 % (11.0-15.5); WHITE BLOOD COUNT (AUTO) 8.3 K/uL (4.8-10.8)
[2020-03-22 06:17] LABS: CREATININE 2.7 mg/dL (0.5-1.5)
[2020-03-22] MEDS: FUROSEMIDE 10 MG/ML 2ML VIAL IV SCH ×2 (07:06→21:04)
[2020-03-22] MEDS: METOPROLOL TARTRATE 50 MG TAB PO SCH ×2 (07:06→21:03)
[2020-03-22] MEDS: ENOXAPARIN SODIUM 40 MG/0.4 ML SYRINGE SQ SCH (07:06)
[2020-03-22] MEDS: FAMOTIDINE 20MG TAB 20 MG TAB PO SCH ×2 (07:06→21:04)
[2020-03-22] MEDS: IRON SUCROSE COMPLEX 100 MG in SODIUM CHLORIDE 0.9% 50 ML IV SCH (07:07)
[2020-03-22 07:59] VITALS: BP 142/79
--- NOTE | 2020-03-22 08:00 | NUR ---
ASSESSMENT PT IS AAOX3 DENIES CP DENIES SOB DENIES NV NO COMPLAINTS RESTING SITTING UPRIGHT IN BED. BILATERAL LOWER EXT LEG KERLIX WRAPS IN PLACE, INTACT. CALL LIGHT WITHIN REACH.
[2020-03-22] MEDS: HONEY 1 APPL/ML TUBE TP SCH (09:18)
[2020-03-22 11:25] VITALS: BP 154/78
[2020-03-22 15:21] VITALS: BP 152/73
--- NOTE | 2020-03-22 15:29 | NUR ---
CM Note: [facility] pending approval and acceptance CM met with pt agreeable to [facility], JHONATAN signed for [facility]. Faxed order, clinicals, covid assessment, and nursing assessment, confirmation received. EMS arranged and faxed for tomorrow, primary nurse to call [facility] once pt ready to DC. MOT semi-filled, Dr Toth signed, pending to be completed once pt has approval, pending [facility] to sign. Spoke to [facility], will work on approval. Pt pending approval and acceptance at this time. Primary nurse aware. CM to cont to follow up.
[2020-03-22] MEDS: AMLODIPINE BESYLATE 5 MG TAB PO SCH (16:33)
[2020-03-22] MEDS: ONDANSETRON HCL 4 MG/2 ML VIAL IV PRN (16:36)
--- NOTE | 2020-03-22 18:30 | NUR ---
STATUS AAOX3 DENIES CP DENIES SOB. NO COMPLAINTS THROUGHOUT THE DAY. CALL LIGHT WITHIN REACH.
[2020-03-22 19:20] VITALS: BP 171/78
[2020-03-23] VITALS (8 sets, daily range): BP systolic 147–177; BP diastolic 72–90
[2020-03-23] MEDS: TIGECYCLINE 50 MG in SODIUM CHLORIDE 0.9% 100 ML IV SCH ×2 (04:57→17:33)
[2020-03-23] MEDS: ONDANSETRON HCL 4 MG/2 ML VIAL IV PRN ×2 (04:57→16:49)
[2020-03-23] MEDS: INSULIN HUMULIN R 100 UNIT/ML 3ML SQ SCH ×4 (05:56→21:00)
[2020-03-23 06:04] LABS: BASOPHILS % (AUTO) 0.5 % (0.0-5.0); EOSINOPHILS % (AUTO) 1.3 % (0.0-8.0); HEMATOCRIT 28.6 % (42-54); LYMPHOCYTES % (AUTO) 14.5 % (21.0-51.0); MEAN CORPUSCULAR HEMOGLOBIN 26.4 pg (27.0-33.0); MEAN CORPUSCULAR HGB CONC 31.5 g/dL (32.0-36.0); MEAN CORPUSCULAR VOLUME 83.9 fL (79-99); NEUTROPHILS % (AUTO) 72.1 % (40.0-77.0); PLATELET COUNT (AUTO) 279 K/uL (130-400); RED BLOOD CELL COUNT(AUTO) 3.41 MIL/uL (4.50-6.20); RED CELL DISTRIBUTION WIDTH 14.1 % (11.0-15.5); WHITE BLOOD COUNT (AUTO) 8.5 K/uL (4.8-10.8)
[2020-03-23 06:14] LABS: CREATININE 2.6 mg/dL (0.5-1.5); CRP QUANTITATIVE 87.3 mg/L (0.00-9.0); POTASSIUM 5.3 mmol/L (3.5-5.1)
[2020-03-23 07:01] LABS: ERYTHROCYTE SEDIMENTATION RATE 50 MM/HR (0-15)
[2020-03-23] MEDS: FAMOTIDINE 20MG TAB 20 MG TAB PO SCH ×2 (08:01→21:18)
[2020-03-23] MEDS: ENOXAPARIN SODIUM 40 MG/0.4 ML SYRINGE SQ SCH (08:01)
[2020-03-23] MEDS: METOPROLOL TARTRATE 50 MG TAB PO SCH ×2 (08:02→19:54)
[2020-03-23] MEDS: AMLODIPINE BESYLATE 5 MG TAB PO SCH (08:37)
[2020-03-23] MEDS: IRON SUCROSE COMPLEX 100 MG in SODIUM CHLORIDE 0.9% 50 ML IV SCH (08:37)
[2020-03-23] MEDS: LOSARTAN 50 MG TABLET PO SCH ×2 (08:42→08:55)
[2020-03-23] MEDS: HONEY 1 APPL/ML TUBE TP SCH (08:42)
[2020-03-23] MEDS: FUROSEMIDE 10 MG/ML 2ML VIAL IV SCH ×2 (08:45→21:19)
[2020-03-24] VITALS (26 sets, daily range): BP systolic 97–186; BP diastolic 52–86
[2020-03-24 04:18] LABS: BASOPHILS % (AUTO) 0.3 % (0.0-5.0); EOSINOPHILS % (AUTO) 1.3 % (0.0-8.0); MEAN CORPUSCULAR HEMOGLOBIN 26.1 pg (27.0-33.0); MEAN CORPUSCULAR HGB CONC 31.7 g/dL (32.0-36.0); MEAN CORPUSCULAR VOLUME 82.2 fL (79-99); MONOCYTES % (AUTO) 10.6 % (3.0-13.0); NEUTROPHILS % (AUTO) 71.3 % (40.0-77.0); NUCLEATED RED BLOOD CELLS 0.2 % (0.0-0.19); PLATELET COUNT (AUTO) 282 K/uL (130-400); RED BLOOD CELL COUNT(AUTO) 3.53 MIL/uL (4.50-6.20); WHITE BLOOD COUNT (AUTO) 8.7 K/uL (4.8-10.8)
[2020-03-24] MEDS: ONDANSETRON HCL 4 MG/2 ML VIAL IV PRN (04:28)
[2020-03-24 04:30] LABS: CREATININE 2.4 mg/dL (0.5-1.5); POTASSIUM 4.6 mmol/L (3.5-5.1)
[2020-03-24] MEDS: TIGECYCLINE 50 MG in SODIUM CHLORIDE 0.9% 100 ML IV SCH ×2 (04:31→20:08)
[2020-03-24] MEDS: INSULIN HUMULIN R 100 UNIT/ML 3ML SQ SCH ×2 (06:21→11:30)
[2020-03-24] MEDS ORDERED: NOREPINEPHRINE BITARTRATE 8 MG in DEXTROSE 5%-WATER 250 ML IV PRN (06:45)
[2020-03-24] MEDS ORDERED: EPINEPHRINE 10 MG in SODIUM CHLORIDE 0.9% 240 ML IV PRN (06:45)
[2020-03-24] MEDS ORDERED: AMINOCAPROIC ACID 15,000 MG in SODIUM CHLORIDE 0.9% 500ML 420 ML IV PRN (06:45)
[2020-03-24] MEDS: ENOXAPARIN SODIUM 40 MG/0.4 ML SYRINGE SQ SCH (09:00)
[2020-03-24] MEDS: FAMOTIDINE 20MG TAB 20 MG TAB PO SCH (09:00)
[2020-03-24] MEDS: FUROSEMIDE 10 MG/ML 2ML VIAL IV SCH ×2 (09:15→10:19)
[2020-03-24] MEDS: METOPROLOL TARTRATE 50 MG TAB PO SCH (10:17)
[2020-03-24] MEDS: AMLODIPINE BESYLATE 5 MG TAB PO SCH (10:17)
[2020-03-24] MEDS: IRON SUCROSE COMPLEX 100 MG in SODIUM CHLORIDE 0.9% 50 ML IV SCH (10:18)
[2020-03-24] MEDS: LOSARTAN 50 MG TABLET PO SCH (10:18)
[2020-03-24] MEDS: HONEY 1 APPL/ML TUBE TP SCH (10:22)
--- NOTE | 2020-03-24 11:35 | NUR ---
KATHLEEN Note: Francisco WANG spoke to Ashlee Shukla, updated clinicals received, forwarded to insurance. Pt pending approval. Primary nurse aware. CM to cont to follow up.
--- NOTE | 2020-03-24 13:20 | NUR ---
RDSCREEN - LOS X 7 Pt admitted with BLE Cellulitis. Pt currently pending CABG procedure. NPO order in place. Altered renal function. Previous toe amputation. Open blisters to lower left leg, as per EMR. When medically feasible, recommend adv diet as tolerated to General Heart Healthy, Renal Non-Dialysis diet order RD to follow up with Nutrition Education post procedure Recommend 500mg Vitamin C (BID) Recommend 60mL ProMod QD RD to continue to monitor. Please notify as additional nutrition concerns arise. Thank you. Addendum: 03/24/20 at [address] Amended: Links added.
[2020-03-24] MEDS ORDERED: HYDRALAZINE HCL 25 MG TABLET PO SCH (14:00)
[2020-03-24] MEDS ORDERED: NITROGLYCERIN 50 MG/D5% WATER 1 BOT ONE (15:14)
[2020-03-24] MEDS ORDERED: SODIUM BICARB 50MEQ 50ML VIAL ONE ×2 (15:27→15:29)
[2020-03-24] MEDS ORDERED: EPINEPHRINE 1 MG/ML AMPULE ONE (15:27)
[2020-03-24] MEDS ORDERED: LIDOCAINE PF 2% 5ML ABBOJECT ONE (15:27)
[2020-03-24] MEDS ORDERED: AMINOCAPROIC ACID 250 MG/ML 20 ML VIAL IV ONE (15:27)
[2020-03-24] MEDS ORDERED: FENTANYL CITRATE PF 50 MCG/1 ML 20ML VIAL IJ ONE (15:27)
[2020-03-24] MEDS ORDERED: PROTAMINE SULFATE 10 MG/ML 25ML VIAL IV ONE (15:27)
[2020-03-24] MEDS ORDERED: HEPARIN SODIUM 1000UNIT/ML 10ML VIAL ONE ×2 (15:27→15:49)
[2020-03-24] MEDS ORDERED: ESMOLOL HCL 10 MG/ML 10 ML VIAL ONE ×2 (15:27→15:28)
[2020-03-24] MEDS ORDERED: NOREPINEPHRINE BITARTRATE 1 MG/1 ML ML IV ONE (15:27)
[2020-03-24] MEDS ORDERED: PROPOFOL 10 MG/ML 20ML VIAL IV ONE (15:28)
[2020-03-24] MEDS ORDERED: MIDAZOLAM HCL 1 MG/ML 2ML VIAL ONE (15:28)
[2020-03-24] MEDS ORDERED: ETOMIDATE 2 MG/ML 10 ML VIAL ONE (15:28)
[2020-03-24] MEDS ORDERED: ROCURONIUM 10MG/1ML SYR 10 MG/ML ML ONE (15:28)
[2020-03-24] MEDS ORDERED: AMIODARONE HCL 50 MG/ML 3 ML VIAL ONE (15:29)
[2020-03-24] MEDS ORDERED: PAPAVERINE HCL 30 MG/ML 2ML VIAL ONE (15:30)
[2020-03-24] MEDS ORDERED: CEFAZOLIN SODIUM 1 GM VIAL ONE (15:30)
--- NOTE | 2020-03-24 15:53 | NUR ---
PT TRANSFERRED TO OR FOR CABG BY DR. ALANIS, PATIENT IN NO DISTRESS, AAOX3. IV INTACT, NO SWELLING.
[2020-03-24 16:21] LABS: ABG HCO3 23.4 mmol/L (21.0-28.0); ABG PCO2 38 mmHg (35-48)
[2020-03-24] MEDS ORDERED: VANCOMYCIN HCL 1 GM VIAL ONE (16:52)
[2020-03-24 17:04] LABS: ABG BASE EXCESS -2.4 mmol/L (-2.0-3.0); ABG HCO3 22.9 mmol/L (21.0-28.0); ABG OXYGEN SATURATION 98.7 % (95.0-99.0); ABG PCO2 41 mmHg (35-48)
[2020-03-24] MEDS ORDERED: SODIUM CHLORIDE 0.9% 500ML 500 ML IV SCH (17:09)
[2020-03-24] MEDS ORDERED: ALBUMIN (HUMAN) 5% 250 ML IV PRN (17:15)
[2020-03-24] MEDS ORDERED: MORPHINE SULFATE 2 MG/ML 1ML SYG IV PRN (17:15)
[2020-03-24] MEDS ORDERED: SODIUM CHLORIDE 0.9% 10 ML VIAL IVP PRN (17:15)
[2020-03-24] MEDS ORDERED: EPINEPHRINE 10 MG in DEXTROSE 5%-WATER 250 ML IV PRN (17:15)
[2020-03-24] MEDS ORDERED: NITROGLYCERIN 50 MG/D5% WATER 250 BOT IV SCH (17:15)
[2020-03-24] MEDS ORDERED: NOREPINEPHRINE 4MG/NS 250ML 250 ML IV PRN (17:15)
[2020-03-24] MEDS ORDERED: PROPOFOL 1000 MG/100 ML 100 ML IV PRN (17:15)
[2020-03-24] MEDS ORDERED: ACETAMINOPHEN 650 MG SUPPOSITORY RC PRN (17:15)
[2020-03-24] MEDS ORDERED: POTASSIUM PHOS 15 mMOL+NS250ML 250 ML IV PRN (17:15)
[2020-03-24] MEDS ORDERED: TRAMADOL HCL 50 MG TABLET PO PRN (17:15)
[2020-03-24] MEDS ORDERED: MAGNESIUM 2GM PREMIX 50ML 50 ML IV PRN (17:15)
[2020-03-24] MEDS ORDERED: DEXTROSE 50%-WATER 50 ML DISP.SYRIN IV PRN (17:15)
[2020-03-24] MEDS ORDERED: INSULIN REGULAR, HUMAN 3ML 100 UNIT in SODIUM CHLORIDE 0.9% 99 ML IV SCH ×2 (17:15)
[2020-03-24] MEDS ORDERED: SODIUM CHLORIDE 0.9% 1000ML 1,000 ML IV SCH (17:15)
[2020-03-24] MEDS ORDERED: AMINOCAPROIC ACID 15,000 MG in SODIUM CHLORIDE 0.9% 250 ML IV SCH (17:15)
[2020-03-24] MEDS ORDERED: GLUCAGON 1MG KIT 1 MG ML IM PRN (17:15)
[2020-03-24] MEDS ORDERED: MORPHINE SULFATE 4 MG/1ML SYG IV PRN (17:15)
--- NOTE | 2020-03-24 17:30 | NUR ---
PT BELONGINGS PICKED UP BY SECURITY TO SOFTWARE APPLICATIONS ARCHITECT.
[2020-03-24 18:12] LABS: ABG BASE EXCESS -1.8 mmol/L (-2.0-3.0); ABG HCO3 22.3 mmol/L (21.0-28.0); ABG OXYGEN SATURATION 98.8 % (95.0-99.0); ABG PCO2 35 mmHg (35-48)
[2020-03-24] MEDS ORDERED: LABETALOL 20 MG/4 ML DISP.SYRIN IV ONE (18:18)
--- NOTE | 2020-03-24 18:40 | NUR ---
Received patient at 1840 from OR into room 213. Patient intubated and sedated, Epi at 0.04 mcg/kg/min, Levo at 1 mcg/min and amicar to the right IJ. VSS and chest tube output within acceptable limits.
[2020-03-24 18:55] LABS: ABG BASE EXCESS -2.6 mmol/L (-2.0-3.0); ABG HCO3 22.1 mmol/L (21.0-28.0); ABG OXYGEN SATURATION 97.4 % (95.0-99.0); ABG PCO2 37 mmHg (35-48)
[2020-03-24] MEDS: POTASSIUM CHLORIDE 20MEQ/100ML 100 ML IV PRN ×2 (19:15→22:06)
[2020-03-24 19:16] LABS: HEMATOCRIT 25.2 % (42-54); MEAN CORPUSCULAR HGB CONC 32.5 g/dL (32.0-36.0); MEAN CORPUSCULAR VOLUME 82.9 fL (79-99); RED BLOOD CELL COUNT(AUTO) 3.04 MIL/uL (4.50-6.20); RED CELL DISTRIBUTION WIDTH 14.2 % (11.0-15.5); WHITE BLOOD COUNT (AUTO) 20.1 K/uL (4.8-10.8)
[2020-03-24] MEDS: SODIUM BICARB 50MEQ 50ML VIAL IV PRN ×3 (19:28→23:01)
[2020-03-24 19:35] LABS: CREATININE 2.4 mg/dL (0.5-1.5); INR 1.25 (0.85-1.15); MAGNESIUM 1.9 mg/dL (1.80-2.40); PARTIAL THROMBOPLASTIN TIME 34.8 SEC (26.3-35.5); PHOSPHORUS 5.5 mg/dL (2.5-4.9); POTASSIUM 3.6 mmol/L (3.5-5.1); PROTHROMBIN TIME 13.4 SEC (9.6-11.6)
[2020-03-24 20:10] LABS: ABG HCO3 25.4 mmol/L (21.0-28.0); ABG OXYGEN SATURATION 97.6 % (95.0-99.0); ABG PCO2 40 mmHg (35-48)
[2020-03-24] MEDS: CEFAZOLIN SODIUM 1 GM VIAL IV SCH (21:51)
[2020-03-24 22:04] LABS: ABG BASE EXCESS -1.2 mmol/L (-2.0-3.0); ABG HCO3 23.6 mmol/L (21.0-28.0); ABG OXYGEN SATURATION 97.3 % (95.0-99.0); ABG PCO2 40 mmHg (35-48)
[2020-03-24 22:56] LABS: ABG BASE EXCESS -0.7 mmol/L (-2.0-3.0); ABG HCO3 24.1 mmol/L (21.0-28.0); ABG OXYGEN SATURATION 96.8 % (95.0-99.0); ABG PCO2 41 mmHg (35-48)
--- NOTE | 2020-03-24 23:00 | NUR ---
Extubated patient at 2300 to aerosol mask 40%. Patient tolerated well.
[2020-03-25] VITALS (34 sets, daily range): BP systolic 89–157; BP diastolic 42–73
[2020-03-25] MEDS: TRAMADOL HCL 50 MG TABLET PO PRN ×2 (00:12→12:27)
[2020-03-25 00:32] LABS: ABG BASE EXCESS 0.9 mmol/L (-2.0-3.0); ABG HCO3 25.7 mmol/L (21.0-28.0); ABG OXYGEN SATURATION 96.2 % (95.0-99.0); ABG PCO2 42 mmHg (35-48)
[2020-03-25] MEDS: ACETAMINOPHEN 325 MG TAB PO PRN ×3 (02:41→21:04)
[2020-03-25 05:10] LABS: HEMATOCRIT 27.3 % (42-54); MEAN CORPUSCULAR HEMOGLOBIN 27.1 pg (27.0-33.0); MEAN CORPUSCULAR HGB CONC 32.2 g/dL (32.0-36.0); RED BLOOD CELL COUNT(AUTO) 3.25 MIL/uL (4.50-6.20); RED CELL DISTRIBUTION WIDTH 14.6 % (11.0-15.5); WHITE BLOOD COUNT (AUTO) 15.7 K/uL (4.8-10.8)
[2020-03-25 05:30] LABS: CREATININE 2.6 mg/dL (0.5-1.5); MAGNESIUM 2.3 mg/dL (1.80-2.40); PHOSPHORUS 4.6 mg/dL (2.5-4.9); POTASSIUM 4.1 mmol/L (3.5-5.1)
[2020-03-25 05:32] LABS: INR 1.18 (0.85-1.15); PARTIAL THROMBOPLASTIN TIME 33.6 SEC (26.3-35.5); PROTHROMBIN TIME 12.7 SEC (9.6-11.6)
[2020-03-25] MEDS: CEFAZOLIN SODIUM 1 GM VIAL IV SCH ×2 (05:56→14:48)
[2020-03-25] MEDS: TIGECYCLINE 50 MG in SODIUM CHLORIDE 0.9% 100 ML IV SCH ×2 (06:50→17:11)
--- NOTE | 2020-03-25 06:52 | NUR ---
Dr. Denny at bedside and updated patient condition. Orders received and entered into system.
[2020-03-25] MEDS ORDERED: CALCIUM GLUCONATE 1 GM/10 ML VIAL IV ONE ×2 (07:16→14:20)
[2020-03-25] MEDS: CALCIUM GLUCONATE 1 GM in SODIUM CHLORIDE 0.9% 50 ML IV PRN ×2 (07:17→14:49)
[2020-03-25 07:19] LABS: ABG BASE EXCESS 3.1 mmol/L (-2.0-3.0); ABG HCO3 28.5 mmol/L (21.0-28.0); ABG OXYGEN SATURATION 97.4 % (95.0-99.0); ABG PCO2 47 mmHg (35-48)
[2020-03-25] MEDS: FAMOTIDINE/PF 20 MG/2 ML VIAL IV SCH (09:59)
[2020-03-25] MEDS: IRON SUCROSE COMPLEX 100 MG in SODIUM CHLORIDE 0.9% 50 ML IV SCH (10:02)
[2020-03-25] MEDS: HONEY 1 APPL/ML TUBE TP SCH (12:27)
[2020-03-25] MEDS: METOPROLOL TARTRATE 25 MG TAB PO SCH (21:00)
[2020-03-25] MEDS: FUROSEMIDE 10 MG/ML 2ML VIAL IV SCH (21:04)
[2020-03-25] MEDS: ATORVASTATIN CALCIUM 20 MG TABLET PO SCH (21:04)
[2020-03-26] VITALS (19 sets, daily range): BP systolic 109–162; BP diastolic 55–89
[2020-03-26] MEDS: ACETAMINOPHEN 325 MG TAB PO PRN ×2 (02:02→07:08)
[2020-03-26 03:37] LABS: HEMATOCRIT 23.8 % (42-54); MEAN CORPUSCULAR HEMOGLOBIN 26.7 pg (27.0-33.0); MEAN CORPUSCULAR HGB CONC 30.7 g/dL (32.0-36.0); MEAN CORPUSCULAR VOLUME 87.2 fL (79-99); RED BLOOD CELL COUNT(AUTO) 2.73 MIL/uL (4.50-6.20); RED CELL DISTRIBUTION WIDTH 15.3 % (11.0-15.5); WHITE BLOOD COUNT (AUTO) 14.1 K/uL (4.8-10.8)
[2020-03-26 03:52] LABS: CREATININE 3.2 mg/dL (0.5-1.5); POTASSIUM 4.3 mmol/L (3.5-5.1)
[2020-03-26] MEDS: TIGECYCLINE 50 MG in SODIUM CHLORIDE 0.9% 100 ML IV SCH ×2 (05:37→18:25)
[2020-03-26] MEDS: ONDANSETRON HCL 4 MG/2 ML VIAL IV PRN ×3 (05:37→18:30)
--- NOTE | 2020-03-26 07:45 | NUR ---
PT WAS ASSESSED BY DR. VARELA AND ORDERS NOTED. ADVISED DR. VARELA OF THE INTAKE AND OUTPUT AND POSSIBLE AIR LEAK TO CHESS TUBE ORDER TO DC CHEST TUBES NOTED. PT WAS ADVISED THE PLAN OF CARE CONCERNING DC OF CHEST TUBES AND CORDIS AFTER IV IS STARTED. PT VERBALIZED UNDERSTANDING.
[2020-03-26] MEDS: TRAMADOL HCL 50 MG TABLET PO PRN ×2 (08:18→20:34)
[2020-03-26] MEDS: FUROSEMIDE 10 MG/ML 2ML VIAL IV SCH ×2 (08:19→20:29)
[2020-03-26] MEDS: FAMOTIDINE/PF 20 MG/2 ML VIAL IV SCH (08:19)
[2020-03-26] MEDS: METOPROLOL TARTRATE 25 MG TAB PO SCH ×2 (08:20→20:29)
[2020-03-26] MEDS: HONEY 1 APPL/ML TUBE TP SCH (08:20)
[2020-03-26] MEDS: IRON SUCROSE COMPLEX 100 MG in SODIUM CHLORIDE 0.9% 50 ML IV SCH (08:20)
--- NOTE | 2020-03-26 09:25 | NUR ---
CHEST TUBES WERE DC'D AND PT STATES THAT IT IS EASIER TO TAKE DEEP BREATHS. IS PRIOR TO DC OF CHEST TUBES WERE BARELY 500, AFTER CHEST TUBES WERE DC'D HE WAS ALMOST 900. PT RESTING COMFORTABLY.
--- NOTE | 2020-03-26 10:10 | NUR ---
WHILE PHYSICAL THERAPIST WAS HAVING THE PATIENT HANGING FEET OF THE BED PT HAD A WATERY GREEN STOOL. PT STATED THAT HE WAS NOT ABLE TO CONTROL THE STOOL IT WAS COMING OUT. PT IS CONCERNED ABOUT NOT ABLE TO CONTROL HIS STOOL, PT WAS ADVISED THAT HE HAS BEEN ON ANTIBIOTIC THERAPY AND SOMETIMES LOOSE STOOLS OCCUR.
--- NOTE | 2020-03-26 12:00 | NUR ---
REPORT WAS CALLED TO ALEX LEONARD RN FOR PT BEING TRANSFERRED TO ROOM 419.
--- NOTE | 2020-03-26 15:15 | NUR ---
PT WAS SAT UP IN CHAIR PER PT AND WAS TRANSFERRED TO ROOM 419.
--- NOTE | 2020-03-26 15:15 | NUR ---
PT WAS TRANSFERRED TO ROOM 419 AND HIS MEDS AND CELL PHONE WERE TRANSFERRED WITH PATIENT AND PT WAS ADVISED OF HIS MEDS IN PLACE.
--- NOTE | 2020-03-26 16:18 | NUR ---
DC PLAN SANGEETA APODACA CALLED SAID PATIENT ACCEPTED 03/26 AT 1400. LET NURSE KNOW SAID LIKELY DC TOMORROW OR SUNDAY. LET SANGEETA KNOW. MOT FILLED PENDING HOUSE SIGNATURE AND EMS STARTED JUST NEEDS DATE. Addendum: 03/26/20 at 1621 by ALPHONSE GUIDRY RN CM Amended: Links added.
[2020-03-26] MEDS: INSULIN HUMULIN R 100 UNIT/ML 3ML SQ SCH ×2 (16:30→21:00)
--- NOTE | 2020-03-26 17:19 | NUR ---
WOUND CARE DONE RECOMMENDED BY WOUND CARE TEAM. PATIENT TOLERATED DRESSING CHANGE.
[2020-03-26] MEDS: ATORVASTATIN CALCIUM 20 MG TABLET PO SCH (20:29)
[2020-03-27 03:00] VITALS: BP 141/64
[2020-03-27] MEDS: TIGECYCLINE 50 MG in SODIUM CHLORIDE 0.9% 100 ML IV SCH ×2 (05:33→16:07)
[2020-03-27] MEDS: ONDANSETRON HCL 4 MG/2 ML VIAL IV PRN (05:33)
[2020-03-27] MEDS: INSULIN HUMULIN R 100 UNIT/ML 3ML SQ SCH ×3 (05:33→16:20)
[2020-03-27 06:31] LABS: HEMATOCRIT 28.2 % (42-54); MEAN CORPUSCULAR HEMOGLOBIN 27.2 pg (27.0-33.0); MEAN CORPUSCULAR HGB CONC 30.9 g/dL (32.0-36.0); MEAN CORPUSCULAR VOLUME 88.1 fL (79-99); PLATELET COUNT (AUTO) 236 K/uL (130-400); RED CELL DISTRIBUTION WIDTH 15.1 % (11.0-15.5); WHITE BLOOD COUNT (AUTO) 16.7 K/uL (4.8-10.8)
[2020-03-27 06:44] LABS: CREATININE 3.5 mg/dL (0.5-1.5); POTASSIUM 4.4 mmol/L (3.5-5.1)
[2020-03-27 07:57] VITALS: BP 136/71
[2020-03-27] MEDS: METOPROLOL TARTRATE 25 MG TAB PO SCH (08:24)
[2020-03-27] MEDS: FUROSEMIDE 10 MG/ML 2ML VIAL IV SCH (08:24)
[2020-03-27] MEDS: FAMOTIDINE/PF 20 MG/2 ML VIAL IV SCH (08:25)
[2020-03-27] MEDS: HONEY 1 APPL/ML TUBE TP SCH (09:00)
[2020-03-27] MEDS: IRON SUCROSE COMPLEX 100 MG in SODIUM CHLORIDE 0.9% 50 ML IV SCH (09:00)
[2020-03-27 11:33] VITALS: BP 140/68
--- NOTE | 2020-03-27 12:30 | NUR ---
Cardio, podiatry, ID, nephro are ok to transfer patient to [facility]. Dr Quintana states creatinine stable.
--- NOTE | 2020-03-27 14:23 | NUR ---
Spoke with Dr Denny, he said patient is ok to transfer to [facility] today.
[2020-03-27 16:00] VITALS: BP 137/68
[2020-03-27] MEDS ORDERED: FUROSEMIDE 20 MG TABLET PO SCH (17:00)
--- NOTE | 2020-03-27 17:11 | NUR ---
Report has been called to Francisco Manning. Lupe Tom RN received report. [facility] has been notified at this time of patient needing transport.
--- NOTE | 2020-03-27 17:30 | NUR ---
Patient transported to [facility] at this time. Patient in stable condition. NO c/o chest pain, solomon, n/v/d, sob reported. Patient medical records sent with EMS.
== END 2020-03-27 17:42 | DRG 853 ==
LOC: EDH 17:46 → EDHIP 23:19 → 4CH 03-18 07:38 → 2CV 03-24 18:20 → 2CH 03-25 02:50 → 4CH 03-26 16:39
PROVIDERS: ADMIT Internal Medicine; ATTEND Internal Medicine
PROC: 02100Z9 Bypass Coronary Artery, One Artery from Left Internal Mammary, Open Approach (ICD-10-PCS; principal; 2020-03-24 15:41)
PROC: 021109W Bypass Coronary Artery, Two Arteries from Aorta with Autologous Venous Tissue, Open Approach (ICD-10-PCS; 2020-03-24 15:41)
PROC: 06BQ4ZZ Excision of Left Saphenous Vein, Percutaneous Endoscopic Approach (ICD-10-PCS; 2020-03-24 15:41)
DX: A41.9 Sepsis, unspecified organism (principal); I50.33 Acute on chronic diastolic (congestive) heart failure; L03.116 Cellulitis of left lower limb; L03.115 Cellulitis of right lower limb; L97.919 Non-pressure chronic ulcer of unspecified part of right lower leg with unspecified severity; N17.9 Acute kidney failure, unspecified; I13.0 Hypertensive heart and chronic kidney disease with heart failure and stage 1 through stage 4 chronic kidney disease, or unspecified chronic kidney disease; T81.30XA Disruption of wound, unspecified, initial encounter; Z16.24 Resistance to multiple antibiotics; E44.0 Moderate protein-calorie malnutrition; E87.5 Hyperkalemia; N18.3 Chronic kidney disease, stage 3 (moderate); L97.529 Non-pressure chronic ulcer of other part of left foot with unspecified severity; I25.10 Atherosclerotic heart disease of native coronary artery without angina pectoris; B95.62 Methicillin resistant Staphylococcus aureus infection as the cause of diseases classified elsewhere; D64.9 Anemia, unspecified; E11.22 Type 2 diabetes mellitus with diabetic chronic kidney disease; E11.51 Type 2 diabetes mellitus with diabetic peripheral angiopathy without gangrene; E11.42 Type 2 diabetes mellitus with diabetic polyneuropathy; E78.00 Pure hypercholesterolemia, unspecified; E78.5 Hyperlipidemia, unspecified; E11.621 Type 2 diabetes mellitus with foot ulcer; L97.519 Non-pressure chronic ulcer of other part of right foot with unspecified severity; R53.81 Other malaise; E87.6 Hypokalemia; S90.829A Blister (nonthermal), unspecified foot, initial encounter; Y93.89 Activity, other specified; Y92.89 Other specified places as the place of occurrence of the external cause; Y99.8 Other external cause status; Z79.899 Other long term (current) drug therapy; Z88.8 Allergy status to other drugs, medicaments and biological substances; Z89.421 Acquired absence of other right toe(s); Z91.19 Patient's noncompliance with other medical treatment and regimen; Z82.49 Family history of ischemic heart disease and other diseases of the circulatory system; Z83.3 Family history of diabetes mellitus
CPT/HCPCS: 36415; 71045; 73700; 80048; 80053; 80061; 81001; 82330; 82435; 82550; 82803; 82947; 82948; 83036; 83540; 83550; 83605; 83735; 83874; 83880; 84100; 84132; 84145; 84295; 84484; 85018; 85025; 85027; 85347; 85610; 85651; 85730; 86140; 86850; 86900; 86901; 86922; 87040; 87070; 87076; 87077; 87088; 87186; 93005; 93880; 94002; 94010; 94150; 97039; A7048; C1729; G0378; J0171; J0282; J0610; J0690; J0885; J1644; J1650; J1756; J1815; J1940; J2001; J2250; J2405; J2440; J2543; J2704; J2720; J3010; J3243; J3370; J3475; J3480; J3490; J7030; J7040; P9045

== ENCOUNTER 2020-05-05 11:33 | Inpatient (IN) | payer BC ==
[2020-05-05 12:36] LABS: BASOPHILS % (AUTO) 0.4 % (0.0-5.0); EOSINOPHILS % (AUTO) 2.7 % (0.0-8.0); HEMATOCRIT 24.4 % (42-54); LYMPHOCYTES % (AUTO) 15.7 % (21.0-51.0); MEAN CORPUSCULAR HEMOGLOBIN 27.9 pg (27.0-33.0); MEAN CORPUSCULAR HGB CONC 31.6 g/dL (32.0-36.0); MEAN CORPUSCULAR VOLUME 88.4 fL (79-99); MONOCYTES % (AUTO) 8.1 % (3.0-13.0); NEUTROPHILS % (AUTO) 72.9 % (40.0-77.0); PLATELET COUNT (AUTO) 222 K/uL (130-400); RED BLOOD CELL COUNT(AUTO) 2.76 MIL/uL (4.50-6.20); RED CELL DISTRIBUTION WIDTH 16.8 % (11.0-15.5); WHITE BLOOD COUNT (AUTO) 5.7 K/uL (4.8-10.8)
[2020-05-05 12:56] LABS: APPEARANCE,URINE Clear (CLEAR); BILIRUBIN,URINE Negative (NEGATIVE); COLOR,URINE Yellow (YELLOW); GLUCOSE, URINE (UA) TRACE mg/dL (NEGATIVE); KETONES,URINE Negative (NEGATIVE); LEUKOCYTE ESTERASE ,URINE Negative (NEGATIVE); NITRATE,URINE Negative (NEGATIVE); OCCULT BLOOD,URINE Small (NEGATIVE); PROTEIN,URINE 300 mg/dL (NEGATIVE)
[2020-05-05 13:00] LABS: INR 0.98 (0.85-1.15); PARTIAL THROMBOPLASTIN TIME 26.2 SEC (26.3-35.5); PROTHROMBIN TIME 10.6 SEC (9.6-11.6)
[2020-05-05 13:10] LABS: ALBUMIN 2.1 g/dL (3.5-5.0); BILIRUBIN,TOTAL 0.2 mg/dL (0.2-1.0); TOTAL PROTEIN, SERUM 6.2 g/dL (6.0-8.3)
[2020-05-05 13:29] LABS: BACTERIA,URINE Rare /HPF (None Seen); MUCUS,URINE Few LPF (None Seen); SQUAMOUS EPITHELIAL CELL,UR Rare /HPF (0-2); WBC,URINE 0-1 /HPF (0-1)
[2020-05-05] MEDS ORDERED: ACETAMINOPHEN 325 MG TAB PO PRN ×2 (14:15)
[2020-05-05] MEDS ORDERED: ONDANSETRON HCL 4 MG/2 ML VIAL IVP PRN (14:15)
[2020-05-05] MEDS ORDERED: ERGOCALCIFEROL (VITAMIN D2) 50,000 UNIT CAPSULE PO ONE (15:50)
[2020-05-05] MEDS ORDERED: HYDRALAZINE HCL 20 MG/ML VIAL IV PRN (16:00)
[2020-05-05] MEDS ORDERED: FUROSEMIDE 10 MG/ML 4ML VIAL IV SCH (16:00)
[2020-05-05] MEDS ORDERED: FUROSEMIDE 10 MG/ML 2ML VIAL ONE (16:24)
[2020-05-05] MEDS ORDERED: METHYLPREDNISOLONE SOD SUCC 40MG/ML 1ML ONE (16:24)
[2020-05-05] MEDS ORDERED: ASCORBIC ACID 500 MG TAB ONE (16:24)
[2020-05-05] MEDS ORDERED: ERGOCALCIFEROL (VITAMIN D2) 50,000 UNIT CAPSULE ONE (16:25)
[2020-05-05] MEDS ORDERED: ENOXAPARIN SODIUM 40 MG/0.4 ML SYRINGE SQ ONE (16:25)
[2020-05-05] MEDS ORDERED: ZINC SULFATE 220 CAPSULE ONE (16:25)
[2020-05-05] MEDS ORDERED: HYDRALAZINE HCL 20 MG/ML VIAL ONE (20:14)
[2020-05-05] MEDS ORDERED: METOPROLOL TARTRATE 25 MG TAB PO SCH (21:00)
[2020-05-05] MEDS ORDERED: METHYLPREDNISOLONE SOD SUCC 40MG/ML 1ML IVP SCH (21:00)
[2020-05-06] MEDS ORDERED: METHYLPREDNISOLONE SOD SUCC 40MG/ML 1ML ONE (01:13)
[2020-05-06] MEDS ORDERED: FUROSEMIDE 10 MG/ML 2ML VIAL ONE (04:51)
[2020-05-06 05:56] LABS: BASOPHILS % (AUTO) 0.4 % (0.0-5.0); EOSINOPHILS % (AUTO) 0.9 % (0.0-8.0); HEMATOCRIT 27.6 % (42-54); LYMPHOCYTES % (AUTO) 6.9 % (21.0-51.0); MEAN CORPUSCULAR HGB CONC 31.5 g/dL (32.0-36.0); MEAN CORPUSCULAR VOLUME 88.7 fL (79-99); MONOCYTES % (AUTO) 1.2 % (3.0-13.0); NEUTROPHILS % (AUTO) 89.9 % (40.0-77.0); PLATELET COUNT (AUTO) 249 K/uL (130-400); RED BLOOD CELL COUNT(AUTO) 3.11 MIL/uL (4.50-6.20); RED CELL DISTRIBUTION WIDTH 16.6 % (11.0-15.5); WHITE BLOOD COUNT (AUTO) 5.6 K/uL (4.8-10.8)
[2020-05-06 06:38] LABS: ALANINE AMINOTRANSFERASE 19 U/L (12-78); ALBUMIN 2.1 g/dL (3.5-5.0); ASPARTATE AMINOTRANSFERASE 14 U/L (10-37); BILIRUBIN,TOTAL 0.4 mg/dL (0.2-1.0); CARBON DIOXIDE 23 mmol/L (21-32); CHLORIDE 107 mmol/L (101-111); CREATININE 2.1 mg/dL (0.5-1.5); GLOMERULAR FILTR. RATE CALC 36 mL/min (>60); GLUCOSE,RANDOM 161 mg/dL (70-105); LACTATE DEHYDROGENASE 215 U/L (81-234); POTASSIUM 5.5 mmol/L (3.5-5.1); SODIUM SERUM 140 mmol/L (136-145); TOTAL PROTEIN, SERUM 6.3 g/dL (6.0-8.3); UREA NITROGEN, BLOOD 61 mg/dL (7-18)
[2020-05-06] MEDS: INSULIN HUMULIN R 100 UNIT/ML 3ML SQ SCH ×3 (07:30→16:10)
[2020-05-06] MEDS ORDERED: ASCORBIC ACID 500 MG TAB PO SCH (09:00)
[2020-05-06] MEDS ORDERED: ZINC SULFATE 220 CAPSULE PO SCH (09:00)
[2020-05-06] MEDS ORDERED: CLOPIDOGREL BISULFATE 75 MG TAB PO SCH (09:00)
[2020-05-06] MEDS ORDERED: ENOXAPARIN SODIUM 40 MG/0.4 ML SYRINGE SQ SCH (09:00)
[2020-05-06] MEDS ORDERED: ATORVASTATIN CALCIUM 20 MG TABLET PO SCH (09:00)
[2020-05-06] MEDS ORDERED: ENOXAPARIN SODIUM 30 MG/0.3 ML SQ SCH (09:00)
[2020-05-06] MEDS ORDERED: METOLAZONE 2.5 MG TABLET PO SCH (09:30)
[2020-05-06] MEDS ORDERED: ENOXAPARIN SODIUM 30 MG/0.3 ML SQ ONE (09:41)
[2020-05-06] MEDS ORDERED: ZINC SULFATE 220 CAPSULE ONE (09:41)
[2020-05-06] MEDS ORDERED: METOPROLOL TARTRATE 25 MG TAB ONE (09:41)
[2020-05-06] MEDS ORDERED: CLOPIDOGREL BISULFATE 75 MG TAB ONE (09:41)
[2020-05-06] MEDS ORDERED: ATORVASTATIN CALCIUM 20 MG TABLET ONE (09:41)
[2020-05-06] MEDS ORDERED: ASCORBIC ACID 500 MG TAB ONE (09:41)
[2020-05-06] MEDS ORDERED: DOXYCYCLINE 100MG+NS 250ML 250 ML IV SCH (10:45)
[2020-05-06] MEDS ORDERED: SODIUM POLYSTYRENE SULFONATE 15 GM/60 ML ML PO SCH (10:45)
[2020-05-06] MEDS ORDERED: DOXYCYCLINE HYCLATE 100 MG TABLET PO SCH (12:17)
--- NOTE | 2020-05-06 12:30 | NUR ---
CALL TO [facility] FOR DISCHARGE PLANNING. SPOUSE STATES PATIENT HAS LONG HX OF DIABETES, AND FUNCTION HAS DECLINED IN THE LAST FEW MONTHS -WEAKER, LESS ENERGY HOME SAFE AND ACCESSIBLE, USES A CPAP AND AN NEBULIZER, DRIVES, AND IS EMPLOYED, [facility] TO PROVIDE TRANSPORT HOME FROM HOSPITAL. PT HAS BEEN TOLD THAT IN THE FUTURE MAY REQUIRE HD, BUT SO FAR HAS NOT NEEDED IT. SEES DR. SIMPSON FOR HIS EYES-(DIABETIC RETINOPATHY) ARRIOLA FOR HIS KIDNEYS AND ANA FOR AN UNSPECIFIED INFECITON. SPOUSE STATES PATIENT IS TERRIFIED OF CATCHING COVID AND WANTS TO GO HOME Addendum: 05/07/20 at 1331 by KRUPA GO RN Amended: Links added.
[2020-05-06] MEDS ORDERED: SODIUM POLYSTYRENE SULFONATE 15 GM/60 ML ML ONE (13:05)
[2020-05-06] MEDS ORDERED: DOXYCYCLINE HYCLATE 100 MG TABLET PO ONE (13:05)
[2020-05-06] MEDS ORDERED: METOLAZONE 2.5 MG TABLET ONE (13:05)
[2020-05-06] MEDS ORDERED: FUROSEMIDE 10 MG/ML 4ML VIAL ONE (15:54)
[2020-05-06] MEDS ORDERED: FUROSEMIDE 10 MG/ML 4ML VIAL IV SCH (16:00)
--- NOTE | 2020-05-06 16:38 | NUR ---
PT IS EDUCATED ABOUT CONDITION AND TREATMENT PLAN BY THE HOSPITAL TEAM. PT VERBALIZED HE IS JUST GETTING DIURETICS AND HE CAN DO THAT AT HOME, ALSO VERBALIZED HE WANT TO GO AMA BECAUSE HE IS SCARE TO STAY HERE DUE TO COVID19. PT WAS EXPLAIN ABOUT RISKS OF LEAVING AMA AND HE UNDERSTAND AND SIGN FORM. DR. LANDIS FROM ER AND [employer] PROFESSOR NOTIFY.
[2020-05-07] MEDS ORDERED: FERROUS SULFATE 325 MG TABLET.DR PO SCH (09:00)
== END 2020-05-06 17:30 | disposition left against medical advice (07) | DRG 291 ==
LOC: EDH 11:33 → EDHIP 14:03 → UNDOADMIN 14:03 → EDHIP 16:32 → DAHIP 16:32 → EDHIP 18:36 → UNDODISIN 05-06 17:30
PROVIDERS: ADMIT Hospitalist; ATTEND Hospitalist
DX: I13.0 Hypertensive heart and chronic kidney disease with heart failure and stage 1 through stage 4 chronic kidney disease, or unspecified chronic kidney disease (principal); I50.33 Acute on chronic diastolic (congestive) heart failure; L03.90 Cellulitis, unspecified; I25.10 Atherosclerotic heart disease of native coronary artery without angina pectoris; N18.3 Chronic kidney disease, stage 3 (moderate); E11.22 Type 2 diabetes mellitus with diabetic chronic kidney disease; E11.51 Type 2 diabetes mellitus with diabetic peripheral angiopathy without gangrene; N44.8 Other noninflammatory disorders of the testis; E87.5 Hyperkalemia; D63.8 Anemia in other chronic diseases classified elsewhere; I89.0 Lymphedema, not elsewhere classified; Z20.828 Contact with and (suspected) exposure to other viral communicable diseases; Z89.421 Acquired absence of other right toe(s); Z89.432 Acquired absence of left foot; Z89.412 Acquired absence of left great toe; Z95.1 Presence of aortocoronary bypass graft; Z83.3 Family history of diabetes mellitus; Z82.49 Family history of ischemic heart disease and other diseases of the circulatory system
CPT/HCPCS: 0099U; 36415; 71045; 76870; 80053; 81001; 82550; 82728; 82948; 83615; 83880; 84145; 84484; 85025; 85378; 85610; 85730; 86140; 93970; G0378; J0360; J1650; J1940; J2920; U0003

== ENCOUNTER 2021-03-10 05:45 | Day surgery (SDC) | payer MEDICARE ==
[2021-03-08 14:18] LABS: BASOPHILS % (AUTO) 0.8 % (0.0-5.0); EOSINOPHILS % (AUTO) 2.4 % (0.0-8.0); LYMPHOCYTES % (AUTO) 17.5 % (21.0-51.0); MEAN CORPUSCULAR HEMOGLOBIN 27.2 pg (27.0-33.0); MEAN CORPUSCULAR HGB CONC 31.5 g/dL (32.0-36.0); MEAN CORPUSCULAR VOLUME 86.1 fL (79-99); MONOCYTES % (AUTO) 7.6 % (3.0-13.0); NEUTROPHILS % (AUTO) 71.4 % (40.0-77.0); PLATELET COUNT (AUTO) 204 K/uL (130-400); RED BLOOD CELL COUNT(AUTO) 4.53 MIL/uL (4.50-6.20); RED CELL DISTRIBUTION WIDTH 14.8 % (11.0-15.5); WHITE BLOOD COUNT (AUTO) 7.9 K/uL (4.8-10.8)
[2021-03-08 14:28] LABS: CREATININE 6.3 mg/dL (0.5-1.5); POTASSIUM 5.6 mmol/L (3.5-5.1)
[2021-03-08 14:31] LABS: INR 1.03 (0.85-1.15); PROTHROMBIN TIME 11.2 SEC (9.6-11.6)
[2021-03-08 14:33] LABS: PARTIAL THROMBOPLASTIN TIME 28.6 SEC (26.3-35.5)
[~2021-03-10 05:45] MED LIST changes: +CLON0.1T PO; -CLOP75TA32 PO; -FERR-82 PO; +FOLI0.8T22 PO; -FURO20TA4 PO; +ISOS20TA PO; -METF-444 PO; +METO100T14 PO; -METO25TA6 PO; +MINO2.5 PO
== END 2021-03-10 07:40 | disposition home or self-care (01) ==
LOC: DAH 05:45
PROVIDERS: ATTEND Surgery Vascular Surgery
DX: I77.0 Arteriovenous fistula, acquired (principal); Z20.822 Contact with and (suspected) exposure to COVID-19; T82.858A Stenosis of other vascular prosthetic devices, implants and grafts, initial encounter; I12.0 Hypertensive chronic kidney disease with stage 5 chronic kidney disease or end stage renal disease; N18.6 End stage renal disease; Z53.8 Procedure and treatment not carried out for other reasons; Z95.1 Presence of aortocoronary bypass graft; Z79.899 Other long term (current) drug therapy; Z98.890 Other specified postprocedural states; Y83.2 Surgical operation with anastomosis, bypass or graft as the cause of abnormal reaction of the patient, or of later complication, without mention of misadventure at the time of the procedure; Z79.01 Long term (current) use of anticoagulants
CPT/HCPCS: 36415; 80048; 82948; 85025; 85610; 85730; 93005; A4215; A4216; A4221; A4223; A4663; A6260; U0003

== ENCOUNTER 2021-03-31 06:16 | Day surgery (SDC) | payer MEDICARE ==
[2021-03-24 10:23] LABS: BASOPHILS % (AUTO) 0.5 % (0.0-5.0); EOSINOPHILS % (AUTO) 2.6 % (0.0-8.0); HEMATOCRIT 35.9 % (42-54); LYMPHOCYTES % (AUTO) 18.2 % (21.0-51.0); MEAN CORPUSCULAR HEMOGLOBIN 27.3 pg (27.0-33.0); MEAN CORPUSCULAR HGB CONC 31.8 g/dL (32.0-36.0); MEAN CORPUSCULAR VOLUME 86.1 fL (79-99); MONOCYTES % (AUTO) 8.7 % (3.0-13.0); NEUTROPHILS % (AUTO) 69.7 % (40.0-77.0); PLATELET COUNT (AUTO) 134 K/uL (130-400); RED BLOOD CELL COUNT(AUTO) 4.17 MIL/uL (4.50-6.20); RED CELL DISTRIBUTION WIDTH 14.7 % (11.0-15.5); WHITE BLOOD COUNT (AUTO) 7.6 K/uL (4.8-10.8)
[2021-03-24 10:30] LABS: POTASSIUM 4.7 mmol/L (3.5-5.1)
[2021-03-30 15:27] VITALS: BP 158/74
[2021-03-31] VITALS (17 sets, daily range): BP systolic 93–205; BP diastolic 49–87
[~2021-03-31] VITALS: Ht 165.1 cm; Wt 64.9 kg
[2021-03-31] MEDS: CEFAZOLIN SODIUM 1 GM VIAL IVP SCH ×2 (06:00→07:50)
[~2021-03-31 06:16] MED LIST changes: -ATOR20TA65 PO; -FOLI0.8T22 PO; -ISOS20TA PO
[2021-03-31] MEDS ORDERED: LIDOCAINE HCL 1% 20 ML VIAL ONE (06:53)
[2021-03-31] MEDS ORDERED: SODIUM CHLORIDE 0.9% 1000ML 1,000 ML IV ONE (06:55)
[2021-03-31] MEDS ORDERED: ROPIVACAINE 0.5% 5MG/ML 30ML IJ ONE (07:16)
[2021-03-31] MEDS ORDERED: PROPOFOL 10 MG/ML 20ML VIAL IV ONE (07:23)
[2021-03-31] MEDS ORDERED: FENTANYL CITRATE PF 50 MCG/1 ML 2ML VIAL ONE (07:24)
[2021-03-31] MEDS ORDERED: MIDAZOLAM HCL 1 MG/ML 2ML VIAL ONE ×2 (07:24→08:26)
== END 2021-03-31 12:10 | disposition home or self-care (01) ==
LOC: DAH 06:16
PROVIDERS: ATTEND Surgery Vascular Surgery
DX: E11.22 Type 2 diabetes mellitus with diabetic chronic kidney disease (principal); Z20.822 Contact with and (suspected) exposure to COVID-19; I12.0 Hypertensive chronic kidney disease with stage 5 chronic kidney disease or end stage renal disease; N18.6 End stage renal disease; I25.10 Atherosclerotic heart disease of native coronary artery without angina pectoris; Z79.899 Other long term (current) drug therapy; Z98.890 Other specified postprocedural states; Z95.1 Presence of aortocoronary bypass graft; Z99.2 Dependence on renal dialysis
CPT/HCPCS: 36415; 36821; 64415; 76942; 80048; 82948 ×2; 85025; 87635; A4215; A4221; A4222; A4223; A4600; A4663 ×2; A4930; A6260; C1713 ×2; C9803; G0168; J0690; J1644; J2250 ×2; J2795; J3010; J7030; J2704

== ENCOUNTER → 2021-07-21 | Outpatient (CLI) | payer BC, MEDICARE | END | disposition home or self-care (01) | LOC: SHCH 13:47 | PROVIDERS: ATTEND Internal Medicine Cardiovascular Disease | DX: I08.1 Rheumatic disorders of both mitral and tricuspid valves (principal) | CPT/HCPCS: 93306; 93356 ==

== ENCOUNTER → 2021-07-26 | Outpatient (CLI) | payer BC, MEDICARE ==
[~2021-07-26] MED LIST changes: +REGADENOSON 0.4 MG/5 ML PF SYG IVP SCH
== END | disposition home or self-care (01) ==
LOC: SHCH 07:58
PROVIDERS: ATTEND Internal Medicine Cardiovascular Disease
DX: I25.9 Chronic ischemic heart disease, unspecified (principal); R94.31 Abnormal electrocardiogram [ECG] [EKG]
CPT/HCPCS: 78452; 93017; 96374; A9500 ×2; J2785

== ENCOUNTER 2021-10-11 08:43 | Day surgery (SDC) | payer BC, MEDICARE ==
[2021-10-06 09:07] LABS: HEMOGLOBIN A1C 5.6 % (4.0-6.0)
[2021-10-10 10:14] VITALS: BP 177/82
[~2021-10-11] VITALS: Ht 167.6 cm; Wt 72.9 kg
[2021-10-11] VITALS (17 sets, daily range): BP systolic 137–190; BP diastolic 60–90
[~2021-10-11 08:43] MED LIST changes: -REGADENOSON 0.4 MG/5 ML PF SYG IVP SCH
[2021-10-11] MEDS ORDERED: DEXTROSE 50%-WATER 50 ML DISP.SYRIN IV ONE (08:44)
[2021-10-11] MEDS: CEFAZOLIN SODIUM 1 GM VIAL IVP SCH ×2 (09:20→12:20)
[2021-10-11] MEDS ORDERED: 0.9% NACL 500ML IV.SOLN 500 ML IV ONE (09:29)
[2021-10-11 09:49] LABS: BASOPHILS % (AUTO) 0.7 % (0.0-5.0); EOSINOPHILS % (AUTO) 2.7 % (0.0-8.0); HEMATOCRIT 34.3 % (42-54); LYMPHOCYTES % (AUTO) 16.7 % (21.0-51.0); MEAN CORPUSCULAR HEMOGLOBIN 27.2 pg (27.0-33.0); MEAN CORPUSCULAR HGB CONC 30.9 g/dL (32.0-36.0); MEAN CORPUSCULAR VOLUME 87.9 fL (79-99); MONOCYTES % (AUTO) 9.1 % (3.0-13.0); NEUTROPHILS % (AUTO) 70.5 % (40.0-77.0); PLATELET COUNT (AUTO) 125 K/uL (130-400); RED CELL DISTRIBUTION WIDTH 14.6 % (11.0-15.5); WHITE BLOOD COUNT (AUTO) 6.8 K/uL (4.8-10.8)
[2021-10-11 09:55] LABS: HEMOGLOBIN A1C 5.5 % (4.0-6.0)
[2021-10-11 10:08] LABS: CREATININE 8.1 mg/dL (0.5-1.5); POTASSIUM 6.1 mmol/L (3.5-5.1)
[2021-10-11] MEDS ORDERED: MIDAZOLAM HCL 1 MG/ML 2ML VIAL ONE (11:59)
[2021-10-11] MEDS ORDERED: PROPOFOL 10 MG/ML 20ML VIAL IV ONE (11:59)
[2021-10-11] MEDS ORDERED: FENTANYL CITRATE PF 50 MCG/1 ML 2ML VIAL ONE ×2 (12:00→15:14)
[2021-10-11] MEDS ORDERED: PROTAMINE SULFATE 10 MG/ML 5 ML VIAL ONE (12:20)
[2021-10-11] MEDS ORDERED: HEPARIN 10,000 UNIT/10ML (1,000 UNIT/ML) VIAL ONE (12:20)
[2021-10-11] MEDS ORDERED: NITROGLYCERIN 50MG/D5W 250ML 1 BOT ONE (12:56)
[2021-10-11] MEDS ORDERED: METOCLOPRAMIDE 10 MG/2 ML VIAL ONE (15:21)
[2021-10-11] MEDS ORDERED: HYDRALAZINE 20MG/ML VIAL ONE (15:25)
== END 2021-10-11 17:00 | disposition home or self-care (01) ==
LOC: DAH 08:43
PROVIDERS: ATTEND Surgery
DX: E11.22 Type 2 diabetes mellitus with diabetic chronic kidney disease (principal); Z20.822 Contact with and (suspected) exposure to COVID-19; I13.2 Hypertensive heart and chronic kidney disease with heart failure and with stage 5 chronic kidney disease, or end stage renal disease; I50.9 Heart failure, unspecified; E11.51 Type 2 diabetes mellitus with diabetic peripheral angiopathy without gangrene; N18.6 End stage renal disease; I25.10 Atherosclerotic heart disease of native coronary artery without angina pectoris; Z99.2 Dependence on renal dialysis; Z95.1 Presence of aortocoronary bypass graft; Z98.890 Other specified postprocedural states; Z79.899 Other long term (current) drug therapy
CPT/HCPCS: 36415; 36820; 64415; 76942; 80048; 82948 ×3; 83036 ×2; 85025; 87635; A4215; A4221; A4222; A4565; A4649 ×2; A4663; A5120; A6260; A6446; C1713 ×2; C9803; G0168; J0360; J0690; J1644 ×2; J2250; J2704; J2720; J2765; J3010 ×2; J3490; J7030; J7040; J7070

== ENCOUNTER 2022-12-20 11:17 | Emergency (ER) | payer BC, MEDICARE ==
[~2022-12-20] VITALS: Ht 167.6 cm; Wt 77.1 kg
[2022-12-20 11:19] VITALS: BP 190/95
== END 2022-12-20 12:05 | disposition home or self-care (01) ==
LOC: EDH 11:17
DX: T82.49XA Other complication of vascular dialysis catheter, initial encounter (principal); E11.9 Type 2 diabetes mellitus without complications; I10 Essential (primary) hypertension; Z88.8 Allergy status to other drugs, medicaments and biological substances; Z95.1 Presence of aortocoronary bypass graft; Y83.8 Other surgical procedures as the cause of abnormal reaction of the patient, or of later complication, without mention of misadventure at the time of the procedure; Y92.89 Other specified places as the place of occurrence of the external cause
CPT/HCPCS: 99281

== ENCOUNTER 2025-03-25 12:03 | Emergency (ER) | payer BC, MEDICARE ==
[~2025-03-25] VITALS: Ht 167.6 cm; Wt 70.3 kg
--- NOTE | 2025-03-25 12:09 | ERN ---
ED Note History of Present Illness Stated Complaint: HEMORRHAGE FROM FISTULA Time Seen by MD: 12:06 Dictation: PATIENT IS A 54-YEAR-OLD MALE COMING IN FROM A LOCAL HEMODIALYSIS CENTER WITH A LAVA. PER PATIENT AND EMS, HE COMPLETED HIS HEMODIALYSIS AND THEY REMOVE THE HEMODIALYSIS CATHETERS FROM HIS LAVA, IT WOULD NOT STOP BLEEDING AND THEY HAD TO HOLD PRESSURE MORE THAN [address] PRESSURE DRESSING IN PLACE. DISTAL NEUROVASCULAR CMS INTACT CAP REFILL LESS THAN 2 SECONDS LEFT HAND. NO CHEST PAIN NO BACK PAIN Allergies: Coded Allergies: No Known Allergies (Verified Allergy, Unknown, 06/08/18) amlodipine (Unverified Adverse Reaction, Intermediate, LEG SWELLING, 03/23/20) lisinopril (Unverified Adverse Reaction, Mild, DRY COUGH, 03/23/20) losartan (Unverified Adverse Reaction, Mild, DRY COUGH, 03/23/20) Home Meds Active Scripts Metoprolol Tartrate (Metoprolol Tartrate) 100 Mg Tablet, 100 MG PO BID for 30 Days, #60 TAB 1 Refill Prov:KAROL BLANCHARD MD 08/08/20 Clonidine HCl (Clonidine HCl) 0.1 Mg Tablet, 0.1 MG PO BID for 30 Days, #60 TAB 1 Refill Prov:KAROL BLANCHARD MD 08/08/20 Reported Medications Minoxidil (Loniten) 2.5 Mg Tab, 1 TAB PO BID 02/21/21 Past Medical History Past Medical History: Anemia, Diabetes-Type II, Hypertension, Renal Disese, Renal Failure Surgical History: CABG RN Note Reviewed/Agreed w/PFSH: Yes Review of System Dictation CONSTITUTIONAL: NEGATIVE EXCEPT FOR HPI HEAD/FACE: NEGATIVE EXCEPT FOR HPI EENT: NEGATIVE EXCEPT FOR HPI RESPIRATORY: NEGATIVE EXCEPT FOR HPI BLEEDING LEFT ARM LAVA GASTROINTESTINAL/ABDOMINAL: NEGATIVE EXCEPT FOR HPI GENITOURINARY: NEGATIVE EXCEPT FOR HPI MUSCULOSKELETAL: NEGATIVE EXCEPT FOR HPI INTEGUMENTARY: NEGATIVE EXCEPT FOR HPI NEUROLOGICAL/PSYCH: NEGATIVE EXCEPT FOR HPI HEMATOLOGIC/LYMPHATIC: NEGATIVE EXCEPT FOR HPI ALL SYSTEMS NEGATIVE, EXCEPT NOTED ABOVE. 13 POINT REVIEW OF SYSTEMS ASSESSED AND ALL NEGATIVE EXCEPT FOR ABOVE. Initial Vital Sign VS Vital Signs Date Time Temp Pulse Resp B/P (MAP) Pulse Ox O2 Delivery O2 Flow Rate FiO2 03/25/25 12:23 98.1 65 18 173/84 98 Room Air 03/25/25 13:48 0 21 Physical Exam Dictation VITAL SIGNS REVIEWED GENERAL APPEARANCE: ALERT, ORIENTED X 3, NO ACUTE DISTRESS, WELL DEVELOPED, NOURISHED. 0/10 PAIN HEAD AND FACE: NON-TRAUMATIC. EYES: PERRL, PINK CONJUNCTIVAS, EYELID NO TRAUMA, ANTERIOR CHAMBER WITH ARCUS SENILIS. EARS: PINNAS INTACT AND NO SIGNS OF TRAUMA OR ERYTHEMA EAR CANALS CLEAR AND NO DISCHARGE TM NO ERYTHEMA NOSE: NO DISCHARGE, NO BLEEDING. OROPHARYNX: MOUTH NORMAL, TONGUE PINK, PHARYNX CLEAR,NO ERYTHEMA, TONSILS NO EXUDATES, NO ABSCESSES NOTED, MUCOUS MEMBRANE MOIST NECK: SUPPLE, NON-TENDER, NO THYROMEGALY, NO MASSES, NO JVD, NO BRUITS BREAST:DEFERRED CHEST:NO TENDERNESS, NO CREPITUS, NO PARADOXICAL MOVEMENT, NO RETRACTIONS LUNGS:CLEAR, WELL-VENTILATED, SYMMETRIC, NO RALES, NO WHEEZING, NO RHONCHI, NO STRIDOR, GOOD BREATH SOUNDS BILATERALLY HEART: REGULAR RATE, REGULAR RHYTHM, NO MURMUR, NO GALLOPS VASCULAR: NO PERIPHERAL EDEMA, LAVA WITH GOOD THRILL AND BRUIT NOTED. PRESSURE DRESSING IN PLACE FROM EMS DISTAL NEUROVASCULAR CMS INTACT HAND WARM ABDOMEN: SOFT, POSITIVE BOWEL SOUNDS, NONDISTENDED, NO GUARDING, NONTENDER, NO REBOUND, NO MASSES NO HEPATOMEGALY, NO SPLENOMEGALY, NO SU'S SIGN, NO HERNIAS. RECTAL: DEFERRED GENITAL: DEFERRED NEUROLOGICAL: NORMAL SPEECH, MOTOR FUNCTION INTACT, SENSORY FUNCTION INTACT MUSCULOSKELETAL: NECK NONTENDER, FULL RANGE OF MOTION, BACK NONTENDER, FULL RANGE OF MOTION, EXTREMITIES: NONTENDER, FULL RANGE OF MOTION SKIN: COLOR PINK, DRY, NO TURGOR, NO RASH, NO LACERATIONS, NO ABRASIONS, NO CONTUSIONS. LYMPHATIC: DEFERRED Results (Laboratory/Radiology) Laboratory/Radiology Laboratory Tests Test 03/25/25 12:17 White Blood Count 4.4 K/uL (4.8-10.8) L Red Blood Count 3.58 MIL/uL (4.50-6.20) L Hemoglobin 11.0 g/dL (14.0-18.0) L Hematocrit 34.8 % (42-54) L Mean Corpuscular Volume 97.2 fL (79-99) Mean Corpuscular Hemoglobin 30.7 pg (27.0-33.0) Mean Corpuscular Hemoglobin Concent 31.6 g/dL (32.0-36.0) L Red Cell Distribution Width 14.6 % (11.0-15.5) Platelet Count 128 K/uL (130-400) L Mean Platelet Volume 10.0 fL (7.5-10.5) Immature Granulocyte % (Auto) 0.2 % (0-1) Neutrophils (%) (Auto) 70.0 % (40.0-77.0) Lymphocytes (%) (Auto) 16.3 % (21.0-51.0) L Monocytes (%) (Auto) 9.5 % (3.0-13.0) Eosinophils (%) (Auto) 2.9 % (0.0-8.0) Basophils (%) (Auto) 1.1 % (0.0-5.0) Neutrophils # (Auto) 3.1 K/uL (1.8-7.7) Lymphocytes # (Auto) 0.7 K/uL (1.0-4.8) L Monocytes # (Auto) 0.4 K/uL (0.1-1.0) Eosinophils # (Auto) 0.13 K/uL (0.00-0.70) Basophils # (Auto) 0.05 K/uL (0.00-0.20) Absolute Immature Granulocyte (auto 0.01 K/uL (0-1) Nucleated Red Blood Cells 0.0 % (0.0-0.19) Sodium Level 141 mmol/L (136-145) Potassium Level 3.5 mmol/L (3.5-5.1) Chloride Level 101 mmol/L (101-111) Carbon Dioxide Level 32 mmol/L (21-32) Blood Urea Nitrogen 21 mg/dL (7-18) H Creatinine 4.2 mg/dL (0.5-1.3) H Glomerular Filtration Rate Calc 16 mL/min (>90) Random Glucose 63 mg/dL (70-105) L Total Calcium 8.2 mg/dL (8.5-10.1) L Labs Reviewed?: Yes EKG Comment: EKG SINUS RHYTHM/HEART RATE 64/RIGHT AKA 0 DEVIATION/LEFT VENTRICULAR HYPERTROPHY NOTE NO TROPONIN WAS DRAWN. NO CHEST PAIN ED Course ED Course Orders Procedure Category Date Status Time *Nursing CPOE 03/25/25 Transmitted Communication: 12:06 Cbc With Differential LAB 03/25/25 Complete 12:06 12 Lead Ekg Tracing- EKG 03/25/25 Complete Technical 12:06 Basic Metabolic Panel LAB 03/25/25 Complete 12:06 Vital Signs Date Time Temp Pulse Resp B/P (MAP) Pulse Ox O2 Delivery O2 Flow Rate FiO2 03/25/25 13:48 98.1 66 18 151/76 98 Room Air* 0 21 03/25/25 12:23 98.1 65 18 173/84 98 Room Air 1405/PATIENT HAS NO ACUTE BLEEDING AT THIS TIME. LAVA HAS TAMPONADE IT PATIENT WILL BE DISCHARGED HOME WITH DISTAL NEUROVASCULAR CMS INTACT TO LEFT HAND TOLD TO FOLLOW UP WITH HIS DOCTOR. Medical Decision Making MDM MEDICAL DISCHARGE MAKING BASED ON BASIC LABS AND AN EKG DUE TO BLEEDING FROM LAVA LABS UNREMARKABLE PER PATIENT IS BASELINE BLEEDING HIS TAMPONADE AT LAVA DISTAL NEUROVASCULAR CMS INTACT TO LEFT HAND. DISCHARGED HOME DX & DISP Disposition: Discharge Departure Impression: Primary Impression: Problem with dialysis access Additional Impressions: ESRD (end stage renal disease) on dialysis, Anemia of chronic kidney failure, Hypocalcemia Condition: Stable Additional Instructions: FOLLOW-UP WITH PRIMARY CARE PROVIDER IN 1 TO 2 DAYS. TAKE MEDICATIONS DIRECTED HERE IN THE EMERGENCY ROOM. OKAY TO CONTINUE HOME MEDICATIONS UNLESS OTHERWISE DISCUSSED DURING YOUR VISIT IN THE EMERGENCY ROOM TODAY. RETURN TO YOUR NEAREST EMERGENCY ROOM IF SYMPTOMS WORSEN OR IF THERE IS NO IMPROVEMENT. CALL 911 IF YOU NEED IMMEDIATE ASSISTANCE. TAKE TYLENOL OR MOTRIN [id number] NEEDED AND IF NO CONTRAINDICATIONS ARE PRESENT. INCREASE ORAL HYDRATION. A WOUND CULTURE OR URINE CULTURE WAS ORDERED HERE IN THE EMERGENCY ROOM DEPARTMENT PLEASE FOLLOW-UP WITH PRIMARY CARE PROVIDER AND ADVISE THEM TO GET REPEAT PORTS FROM OUR FACILITY. IF YOU HAD ANY MADELINE WRAP/SPLINTS THAT WERE APPLIED HERE, PLEASE DO NOT REMOVE THEM UNTIL YOU SEE YOUR PRIMARY CARE OR SPECIALTY. DIET AND ACTIVITY PER YOUR NEPHROLOGISTS. CONTINUE ALL YOUR MEDICATIONS FROM YOUR NEPHROLOGISTS AND SEE HIM IN THE NEXT 1-2 DAYS. Referrals: TAMMY HARP MD (PCP) Time of Disposition: 14:08 I have reviewed the case, and I agree with, Diagnosis and Plan EUNICE DEL REAL NP Mar 25, 2025 12:09
[2025-03-25 12:24] LABS: BASOPHILS # (AUTO) 0.05 K/uL (0.00-0.20); BASOPHILS % (AUTO) 1.1 % (0.0-5.0); EOSINOPHILS # (AUTO) 0.13 K/uL (0.00-0.70); EOSINOPHILS % (AUTO) 2.9 % (0.0-8.0); HEMATOCRIT 34.8 % (42-54); IMMATURE GRANULOCYTE ABSOLUTE 0.01 K/uL (0-1); LYMPHOCYTES # (AUTO) 0.7 K/uL (1.0-4.8); LYMPHOCYTES % (AUTO) 16.3 % (21.0-51.0); MEAN CORPUSCULAR HEMOGLOBIN 30.7 pg (27.0-33.0); MEAN CORPUSCULAR HGB CONC 31.6 g/dL (32.0-36.0); MEAN CORPUSCULAR VOLUME 97.2 fL (79-99); MONOCYTES # (AUTO) 0.4 K/uL (0.1-1.0); MONOCYTES % (AUTO) 9.5 % (3.0-13.0); NEUTROPHILS # (AUTO) 3.1 K/uL (1.8-7.7); PLATELET COUNT (AUTO) 128 K/uL (130-400); RED BLOOD CELL COUNT(AUTO) 3.58 MIL/uL (4.50-6.20); RED CELL DISTRIBUTION WIDTH 14.6 % (11.0-15.5); WHITE BLOOD COUNT (AUTO) 4.4 K/uL (4.8-10.8)
[2025-03-25 12:30] LABS: CREATININE 4.2 mg/dL (0.5-1.3); POTASSIUM 3.5 mmol/L (3.5-5.1)
--- NOTE | 2025-03-25 12:33 | EKG ---
[facility] Test Date: 2025-03-25 Test Time: 12:15:58 Pat Name: DIEGO COOPER Department: [facility] Room: Gender: M Orthodontist Assistant: [id number] : [id number] Requested By: EUNICE DEL REAL Order Number: [id number] Reading MD: Panchito Almaguer Measurements Intervals [place] Rate: 64 P: 9 AL: 191 QRS: 115 QRSD: 103 T: 46 QT: 452 QTc: 467 Interpretive Statements Sinus rhythm Right axis deviation Consider left ventricular hypertrophy Compared to ECG 03/08/2021 13:57:24 Right-axis deviation now present Possible ischemia no longer present ST (T wave) deviation no longer present Electronically Signed On 03-26-2025 13:54:28 CDT by Panchito Almaguer Please click the below link to view image of tracing.
[2025-03-25 13:48] VITALS: BP 151/76; PULSE 66; RESP 18; TEMP 98.1; O2SAT 98
== END 2025-03-25 14:11 | disposition home or self-care (01) ==
LOC: EDH 12:03
DX: I12.0 Hypertensive chronic kidney disease with stage 5 chronic kidney disease or end stage renal disease (principal); E11.22 Type 2 diabetes mellitus with diabetic chronic kidney disease; D63.1 Anemia in chronic kidney disease; N18.6 End stage renal disease; T82.898A Other specified complication of vascular prosthetic devices, implants and grafts, initial encounter; E83.51 Hypocalcemia; Z79.899 Other long term (current) drug therapy; Z88.8 Allergy status to other drugs, medicaments and biological substances; Z95.1 Presence of aortocoronary bypass graft; Z99.2 Dependence on renal dialysis; Y82.8 Other medical devices associated with adverse incidents; Y92.89 Other specified places as the place of occurrence of the external cause
CPT/HCPCS: 36415; 80048; 85025; 93005; 99284